=== PATIENT | female | born 1940 | race Caucasian/White ===

== ENCOUNTER → 2023-05-13 | Emergency (ER) | payer OTHER ==
[~2023-05-13] MED LIST: IBUPROFEN 200 MG TAB PO ONE
--- NOTE | 2023-05-13 16:48 | RAD REPORT ---
EXAM DESCRIPTION: RAD - Knee Left 3 View - 05/13/2023 3:47 pm CLINICAL HISTORY: Left knee pain FINDINGS: No fracture or dislocation is seen. Bones are osteoporotic. Moderate osteoarthritis involves the knee consisting of joint space narrowing and osteophytes
--- NOTE | 2023-05-13 16:59 | EDPHYS ---
Physician Documentation [facility] Name: Thor Funez Age: 82 yrs Sex: Female : 1940 Arrival Date: 05/13/2023 Time: 15:20 Bed 7 Private MD: ED Physician Ludin Lopez HPI: 05/13 16:00 This 82 yrs old Female presents to ER via EMS with complaints of Knee Injury. ci 16:00 Patient is an 82-year-old female who presents with left knee pain that began around 230 ci today after she stepped off the curb wrong. Patient reports that she stumbled a bit and held onto her car but did not hit the ground. Patient has had knee pain and unable to bear weight. Endorses swelling, pain with ambulation. Denies paresthesias, numbness, redness. Historical: - Allergies: 15:37 Sulfa (Sulfonamide Antibiotics); kc6 - PSHx: 15:37 right knee replacement; kc6 15:37 Tonsillectomy; Cholecystectomy; kc6 - Immunization history:: Adult Immunizations up to date, Flu vaccine is not up to date. - Social history:: Smoking status: Patient denies any tobacco usage or history of. - History obtained from: EMS. ROS: 16:00 Constitutional: Negative for fever, chills, and weight loss, Cardiovascular: Negative ci for chest pain, palpitations, and edema, Respiratory: Negative for shortness of breath, cough, wheezing, and pleuritic chest pain, Abdomen/GI: Negative for abdominal pain, nausea, vomiting, diarrhea, and constipation, 16:00 MS/extremity: Positive for pain, swelling, of the right leg, Exam: 16:02 Constitutional: This is a well developed, well nourished patient who is awake, alert, ci and in no acute distress. Head/Face: Normocephalic, atraumatic. Eyes: Pupils equal round and reactive to light, extra-ocular motions intact. Lids and lashes normal. Conjunctiva and sclera are non-icteric and not injected. Cornea within normal limits. Periorbital areas with no swelling, redness, or edema. ENT: Nares patent. No nasal discharge, no septal abnormalities noted. Tympanic membranes are normal and external auditory canals are clear. Oropharynx with no redness, swelling, or masses, exudates, or evidence of obstruction, uvula midline. Mucous membranes moist. Neck: Trachea midline, no thyromegaly or masses palpated, and no cervical lymphadenopathy. Supple, full range of motion without nuchal rigidity, or vertebral point tenderness. No Meningismus. Chest/axilla: Normal chest wall appearance and motion. Nontender with no deformity. No lesions are appreciated. Cardiovascular: Regular rate and rhythm with a normal S1 and S2. No gallops, murmurs, or rubs. Normal PMI, no JVD. No pulse deficits. Respiratory: Lungs have equal breath sounds bilaterally, clear to auscultation and percussion. No rales, rhonchi or wheezes noted. No increased work of breathing, no retractions or nasal flaring. Abdomen/GI: Soft, non-tender, with normal bowel sounds. No distension or tympany. No guarding or rebound. No evidence of tenderness throughout. Back: No spinal tenderness. No costovertebral tenderness. Full range of motion. Skin: Warm, dry with normal turgor. Normal color with no rashes, no lesions, and no evidence of cellulitis. Neuro: Awake and alert, GCS 15, oriented to person, place, time, and situation. Cranial nerves II-XII grossly intact. Motor strength 5/5 in all extremities. Sensory grossly intact. Cerebellar exam normal. Normal gait. Psych: Awake, alert, with orientation to person, place and time. Behavior, mood, and affect are within normal limits. 16:02 Musculoskeletal/extremity: Extremities: Compartment Syndrome exam of affected extremity: is normal. no numbness, no tingling, no sensation deficit, no palor, no weak pulses, Joints: the right knee displays effusion, limited range of motion, swelling, tenderness, Vital Signs: 15:36 BP 135 / 71; Pulse 98; Resp 16 S; Temp 97.6(O); Pulse Ox 94% on R/A; Weight 86.18 kg kc6 (R); MDM: 15:28 Patient medically screened. ci 16:41 Awaiting: X-ray results. ci 16:57 Differential Diagnosis Fracture, dislocation, sprain, tendinitis, septic arthritis, OA, ci RA. Data reviewed: vital signs, nurses notes, radiologic studies. ED course: PatientImaging shows no acute fractures. Neurovascularly intact, compartment is soft, will place in a knee immobilizer and referred to orthopedic surgery.. 05/13 15:34 Order name: XRAY Knee LEFT 3 view; Complete Time: 16:56 ci 05/13 16:57 Order name: Knee Immobilizer; Complete Time: 17:24 ci Administered Medications: 17:12 Drug: Ibuprofen PO 400 mg PO once Route: PO; me1 17:27 Follow up: Response: No adverse reaction me1 Disposition Summary: 05/13/23 16:59 Discharge Ordered Notes: Location: Home ci Condition: Stable ci Diagnosis - Sprain of other specified parts of left knee ci Followup: ci - With: Private Physician - When: 1 - 2 days - Reason: Recheck today's complaints, Re-evaluation by your physician Discharge Instructions: - Discharge Summary Sheet ci - Knee Effusion, [id number] ci - Knee Sprain, Adult, [id number]-xb-[id number] ci - Acute Knee Pain, Adult, Ulxc-hj-[id number] ci Forms: - Medication Reconciliation Form ci - Thank You Letter ci - Antibiotic Education ci - Prescription Opioid Use ci - Patient Portal Instructions ci - Leadership Thank You Letter ci Prescriptions: - Anaprox DS 550 mg Oral Tablet - take 1 tablet ORAL route every 12 hours As needed; 20 tablet; Refills: 0, ci Product Selection Permitted Signatures: Dispatcher [employer] Nyla Rod RN RN kc6 Juliette Sanchez RN RN me1 Ludin Lopez
--- NOTE | 2023-05-13 16:59 | ER ---
Nurse's Notes [facility] Name: Thor Funez Age: 82 yrs Sex: Female : 1940 Arrival Date: 05/13/2023 Time: 15:20 Bed 7 Private MD: Diagnosis: Sprain of other specified parts of left knee Presentation: 05/13 15:36 Chief complaint: EMS states: pt took a misstep off a curb while ambulating to her car. kc6 unable to bear weight for EMS. Coronavirus screen: At this time, the client does not indicate any symptoms associated with coronavirus-19. Ebola Screen: No symptoms or risks identified at this time. Initial Sepsis Screen: Does the patient meet any 2 criteria? No. Patient's initial sepsis screen is negative. Does the patient have a suspected source of infection? No. Patient's initial sepsis screen is negative. Risk Assessment: Do you want to hurt yourself or someone else? Patient reports no desire to harm self or others. Onset of symptoms was May 13, 2023. 15:36 Method Of Arrival: EMS: [facility] 15:36 Acuity: LISA 4 kc6 Triage Assessment: 15:37 General: Appears in no apparent distress. comfortable, obese, well groomed, well kc6 developed, Behavior is calm, cooperative, appropriate for age. Pain: Complains of pain in left knee. EENT: No signs and/or symptoms were reported regarding the EENT system. Neuro: Level of Consciousness is awake, alert, obeys commands, Oriented to person, place, time, situation, Appropriate for age. Cardiovascular: Capillary refill < 3 seconds. Respiratory: Airway is patent Trachea midline Respiratory effort is even, unlabored, Respiratory pattern is regular, symmetrical. GI: No signs and/or symptoms were reported involving the gastrointestinal system. : No signs and/or symptoms were reported regarding the genitourinary system. Derm: No signs and/or symptoms reported regarding the dermatologic system. Skin is intact, is healthy with good turgor, Skin is pink, warm \T\ dry. Musculoskeletal: Range of motion: limited in left knee. Historical: - Allergies: 15:37 Sulfa (Sulfonamide Antibiotics); kc6 - PSHx: 15:37 right knee replacement; kc6 15:37 Tonsillectomy; Cholecystectomy; kc6 - Immunization history:: Adult Immunizations up to date, Flu vaccine is not up to date. - Social history:: Smoking status: Patient denies any tobacco usage or history of. - History obtained from: EMS. Screenin:39 [facility] ED Fall Risk Assessment (Adult) History of falling in the last 3 months, kc6 including since admission Yes- single mechanical fall (1 pt) Confusion or Disorientation No (0 pts) Intoxicated or Sedated No (0 pts) Impaired Gait No (0 pts) Mobility Assist Device Used No (0 pt) Altered Elimination No (0 pt) Score/Fall Risk Level 0 - 2 = Low Risk. Abuse screen: Denies threats or abuse. Denies injuries from another. Nutritional screening: No deficits noted. Tuberculosis screening: No symptoms or risk factors identified. Assessment: 15:38 Reassessment: please see triage assessment. kc6 16:38 Reassessment: Patient appears in no apparent distress at this time. No changes from 6 previously documented assessment. Patient and/or family updated on plan of care and expected duration. Pain level reassessed. Patient is alert, oriented x 3, equal unlabored respirations, skin warm/dry/pink. 17:38 Reassessment: Patient appears in no apparent distress at this time. No changes from 6 previously documented assessment. Patient and/or family updated on plan of care and expected duration. Pain level reassessed. Patient is alert, oriented x 3, equal unlabored respirations, skin warm/dry/pink. Vital Signs: 15:36 BP 135 / 71; Pulse 98; Resp 16 S; Temp 97.6(O); Pulse Ox 94% on R/A; Weight 86.18 kg kc6 (R); ED Course: 15:24 Patient arrived in ED. bc6 15:27 Ludin Lopez is Attending Physician. ci 15:36 Nyla Qiu, RN is Primary Nurse. kc6 15:37 Triage completed. kc6 15:37 Arm band placed on. kc6 15:39 Patient has correct armband on for positive identification. Bed in low position. Call kc6 light in reach. Side rails up X2. Client placed on continuous cardiac and pulse oximetry monitoring. NIBP monitoring applied. 15:39 Patient maintains SpO2 saturation greater than 95% on room air. kc6 15:49 XRAY Knee LEFT 3 view In Process Unspecified. EDMS 17:42 No provider procedures requiring assistance completed. Patient did not have IV access kc6 during this emergency room visit. Administered Medications: 17:12 Drug: Ibuprofen PO 400 mg PO once Route: PO; me1 17:27 Follow up: Response: No adverse reaction me1 Medication: 17:42 VIS not applicable for this client. kc6 Outcome: 16:59 Discharge ordered by . ci 17:42 Discharged to home via wheelchair, with family, kc6 17:42 Condition: good 17:42 Discharge instructions given to patient, family, Instructed on discharge instructions, follow up and referral plans. medication usage, Demonstrated understanding of instructions, follow-up care, medications, Prescriptions given X 1, 17:42 Patient left the ED. kc6 Signatures: Dispatcher [employer] Nyla Rod, RN RN kc6 Yarely Mccarthy6 Juliette Sanchez RN RN me1 Ludin Lopez
[2023-05-13 19:32] VITALS: BP 185/90; TEMP 97.6; O2SAT 97
== END ==
LOC: ER 15:20
DX: S83.8X2A Sprain of other specified parts of left knee, initial encounter (principal); W18.43XA Slipping, tripping and stumbling without falling due to stepping from one level to another, initial encounter; Y93.89 Activity, other specified; Y92.9 Unspecified place or not applicable; Z88.2 Allergy status to sulfonamides
CPT/HCPCS: 99284

== ENCOUNTER 2024-04-29 20:36 | Inpatient (IN) | payer OTHER ==
--- OUTSIDE RECORDS SUMMARY | 2024-04-29 20:39 | XMS REPORT | Clinical Summary ---
Author Name Unknown Organization [facility] MD [facility] Address [address] [place] [address] Care Team Providers Care Shellac Polisher Name Role Phone Konrad Stevenson MD Unavailable [phone] Christopher Dee MD Unavailable Unavailable Claritza Christianson MD Primary Care Provider [phone] Mayra Garcia MD Unavailable Angel Ambrocio MD Unavailable [phone] Allergies Active Allergy Reactions Criticality Noted Date Comments Sulfa (Sulfonamide Antibiotics) Palpitations,Swelling Low Valsartan-Hydrochlor othiazide 03/24/2016 Unsure of allergy Medications * This document contains information received from the source organization and may not represent a complete record from that organization. digoxin (LANOXIN) 125 mcg tablet Take 1 tablet by mouth daily. Active furosemide (LASIX) 20 mg tablet Take 1 tablet by mouth daily. Active gabapentin (NEURONTIN) 300 mg capsule Take 1 capsule by mouth daily. Active hyoscyamine (HYOSYNE) 0.125 mg/5 mL elix elixir Take 0.125 mg by mouth every 6 (six) hours as needed. Active mirtazapine (REMERON) 15 mg tablet Take 1 tablet by mouth every evening. Active omeprazole (PriLOSEC) 20 mg capsule Take 1 capsule by mouth daily. Active rOPINIRole (REQUIP) 3 mg tablet Take 1 tablet by mouth 3 (three) times a day. Active sotalol (BETAPACE) 80 mg tablet Take 1 tablet by mouth daily. Active spironolactone (ALDACTONE) 50 mg tablet Take 1 tablet by mouth daily. Active losartan (COZAAR) 100 mg tablet Take 1 tablet by mouth daily. Active traMADol (ULTRAM) 50 mg tabletIndicatio ns:Intraductal carcinoma in situ of right breast Take 2 tablets (100 mg) by mouth every 6 (six) hours as needed for moderate pain. 30 tablet 11/23/2017 2:47 PM CDT 8 Active Additional Information Patient not taking.Reported on 12/15/2017 apixaban (ELIQUIS) 5 mg tabletIndicatio ns:Intraductal carcinoma in situ of right breast Take 1 tablet (5 mg) by mouth daily. 0 8 Active Additional Information Patient taking differently:5 mg oral2 times daily, Informant: Self, Reported on 12/01/2017 anastrozole (ARIMIDEX) 1 mg tabletIndicatio ns:Intraductal carcinoma in situ of right breast TAKE 1 TABLET BY MOUTH EVERY DAY 90 tablet 3 0 Active Active Problems Problem Noted Date Diagnosed Date Intraductal carcinoma in situ of right breast Cancer Staging:Clinical: Unsigned Pathologic stage from 12/08/2017:Stage 0(pTis (DCIS), pN0, cM0, G3, ER: Positive, CA: Positive, HER2: Not Assessed) - Signed by Patricia Mahajan MD on 12/08/2017 Surgical History Surgery Date Site/Laterality Comments KNEE ARTHROPLASTY Right CHOLECYSTECTOMY TONSILLECTOMY HYSTERECTOMY ovaries intact COLONOSCOPY CA MASTECTOMY PARTIAL 11/23/2017 Breast/Right Procedure: NEEDLE LOC; SEGMENTAL MASTECTOMY; Surgeon: Claritza Christianson MD; Location: [facility]; Service: BREAST Medical History Medical History Date Comments Atrial fibrillation Hypertension Restless legs Acid reflux Lymphedema Bilateral legs Family History Medical History Relation Name Comments -Breast cancer Neg Hx Ovarian cancer Neg Hx Social History Tobacco Use Types Packs/Day Years Used Date Smoking Tobacco: Never Smokeless Tobacco: Never Alcohol Use Standard Drinks/Week Comments Yes 0 (1 standard drink = 0.6 oz pur e alcohol) rarely Comments No Sex and Gender Information Value Date Recorded Sex Assigned at Not on file Legal Sex Female 11:53 AM CDT Gender Identity Not on file Sexual Orientation Not on file Obstetrics History Para Term AB IAB SAB Ectopic Multiple Livin g Live Births 3 1 Date Outcome GA Total Labor Labor/2nd/3rd Weight Sex Type Anes PTL Kiana A1 A5 Name Clin Para Plan of Treatment Health Maintenance Due Date Last Done Comments Pneumococcal Vaccine: 65+ Years (1 of 1 - PCV) 008 COVID-19 Vaccine ( - 2023- season) 2023 Influenza Vaccine (#1) 2023 Insurance MEDICARE PART A AND B [employer] HMO MEDICARE PART A AND B [facility] H[facility] [address] [place] [address] [facility] Directives * Full Code (Latest Code Status on File) Date Activated Date Inactivated Comments 11/23/2017 1:59 PM 11/23/2017 6:04 PM Care Teams Shellac Polisher Relationship Specialty Start Date End Date Konrad Stevenson MD [address] [place] [id number] [email or web address] PCP - External Follow Up A Internal Medicine 11/04/17 Christopher Dee MD [id number] [address] PCP - External Follow Up B Cardiology 11/04/17 Claritza Christianson MD [address] [place] [email or web address] PCP - General Breast Surgery 11/10/17 Mayra Garcia MD [address] [place] [email or web address] Physician Medical Oncology 11/30/17 Angel Ambrocio MD [address] [place] [email or web address] Consulting Physician Cardiology 11/15/17
[2024-04-29] MEDS ORDERED: HYDROCODONE/APAP 5/325 MG TAB ONE (21:45)
--- NOTE | 2024-04-29 21:55 | RAD REPORT ---
EXAMINATION: ONE VIEW CHEST XR CLINICAL INDICATION: edema TECHNIQUE: Frontal chest projection is submitted. Examination is limited by patient positioning and t echnique. COMPARISON: 05/03/2023 FINDINGS: Sbvf-[id number] pulmonary edema. The heart is moderately enlarged in size. No displaced fractures id entified. Left shoulder degenerative changes. IMPRESSION: [id number] CHF versus volume overload pattern.
--- NOTE | 2024-04-29 22:14 | RAD REPORT ---
EXAMINATION: US BILATERAL LOWER EXTREMITY VENOUS DOPPLER CLINICAL INDICATION: bilateral leg swelling TECHNIQUE: Complete bilateral duplex sonography of the BILATERAL lower extremity veins was performed. The examination included compression for vein patency, color Doppler imaging and flow augmentation in response to distal compression of the distal external iliac, common femoral, femoral, popliteal, t ibial, and great and small saphenous veins. COMPARISON: No prior exam. FINDINGS: Duplex sonography testing of the veins of the BILATERAL lower extremity was performed. Color flow jen ging shows all veins to be compressible with vand-gz-uals color filling. Pulsatile and phasic flow is present within all lower extremity deep and superficial veins examined. IMPRESSION: There is no deep vein or superficial vein thrombosis.
[2024-04-29 23:58] LABS: Absolute Eosinophils 0.1 K/uL (0-0.5); Absolute Lymphocytes (CBC) 1.7 K/uL (0.7-4.9); Absolute Monocytes 0.4 K/uL (0.1-1.3); Absolute Neutrophil 3.3 K/uL (1.8-8.0); Basophils % 0.3 % (0-1.3); Eosinophils % 1.6 % (0-4.4); Hematocrit 38.5 % (36.0-45.0); Hemoglobin 12.9 g/dL (12.0-15.0); Lymphocytes % 31.4 % (15.3-44.8); MCH 31.3 pg (27.0-35.0); MCHC 33.4 g/dL (32.0-36.0); MCV 93.6 fL (80-100); Monocytes % 7.8 % (3.3-12.3); Neutrophils % 58.9 % (41.7-73.7); Nucleated Red Blood Cells % 0.1 % (0-0); Platelets 204 thou/uL (152-406); RBC Red Blood Cell Count 4.11 M/uL (3.86-4.86); Red Cell Distribution Width 14.3 % (12.1-15.2)
[2024-04-30 00:07] LABS: Protime INR 1.26
[2024-04-30 00:21] LABS: Albumin 3.3 g/dL (3.4-5.0); Albumin/Globulin Ratio 0.9 (1.1-1.8); Anion Gap 7.7 mEq/L (5.0-15.0); Bilirubin Direct 0.3 mg/dL (0-0.2); Bilirubin Indirect, Calculated 0.6 mg/dL (0.2-0.8); Bilirubin Total 0.9 mg/dL (0.2-1.0); Globulin 3.8 g/dL (2.3-3.5); Magnesium 1.9 mg/dL (1.6-2.4); Potassium 3.7 mEq/L (3.5-5.1); Protein, Total 7.1 g/dL (6.4-8.2); Troponin High Sensitivity 7.9 pg/mL (<58.9)
--- NOTE | 2024-04-30 01:06 | EDPHYS ---
Physician Documentation [facility] Name: Thor Funez Age: 83 yrs Sex: Female : 1940 Arrival Date: 04/29/2024 Time: 20:36 Bed 16 Private MD: Konrad Stevenson V ED Physician Jason Wolf HPI: 04/29 20:48 This 83 yrs old Female presents to ER via Unassigned with complaints of Leg sp4 Swelling, Dr SERRANO sent the patient to the ER, Pt can not walk due to legs swelling and hurting. 04/30 18:55 This is a very pleasant 83-year-old female who presents with bilateral lower extremity sp4 swelling and pain. Patient was sent here by her vascular specialist to rule out bilateral lower extremity blood clots. Patient was advised to get bilateral lower extremity venous Doppler. Reports dyspnea on exertion and generalized weakness.. Historical: - Allergies: 04/29 21:39 Sulfa (Sulfonamide Antibiotics); kj2 - PSHx: 21:39 Cholecystectomy; Right knee replacement; Tonsillectomy; kj2 - Immunization history:: Adult Immunizations unknown. - Infectious Disease History:: Denies. - Social history:: Smoking status: unknown. - Family history:: not pertinent. ROS: 04/30 18:56 Constitutional: Negative for fever, chills, and weight loss, positive for bilateral sp4 lower extremity swelling, positive for dyspnea on exertion, positive for pitting edema, positive for generalized fatigue All other systems are negative, Exam: 01:06 Constitutional: This is a well developed, well nourished patient who is awake, alert, sp4 Frail elderly female , No distress Head/Face: Normocephalic, atraumatic. Eyes: Pupils equal round and reactive to light, extra-ocular motions intact. Lids and lashes normal. Conjunctiva and sclera are not injected. Cornea within normal limits. Periorbital areas with no swelling, redness, or edema. ENT: Nares patent. No nasal discharge, no septal abnormalities noted. Tympanic membranes are normal and external auditory canals are clear. Oropharynx with no redness, swelling, or masses, exudates, or evidence of obstruction, uvula midline. Mucous membranes moist. Neck: Trachea midline, no thyromegaly or masses palpated, and no cervical lymphadenopathy. Supple, full range of motion without nuchal rigidity, or vertebral point tenderness. Chest/axilla: Normal chest wall appearance and motion. Nontender with no deformity. No lesions are appreciated. Cardiovascular: Irregularly irregular rate. No gallops, murmurs, or rubs. Normal PMI, no JVD. No pulse deficits. Respiratory: Lungs have equal breath sounds bilaterally, clear to auscultation and percussion. No rales, rhonchi or wheezes noted. No increased work of breathing, no retractions or nasal flaring. Abdomen/GI: Soft, with normal bowel sounds. No distension or tympany. No guarding or rebound. No evidence of tenderness throughout. Back: No spinal tenderness. No costovertebral tenderness. Skin: Warm, dry with normal turgor. Normal color with no rashes, no lesions, and no evidence of cellulitis. MS/ Extremity: Pulses equal, no cyanosis. Neurovascular intact. Full, normal range of motion. Neuro: Awake and alert, GCS 15, oriented to person, place, time, and situation. Cranial nerves II-XII grossly intact. Motor strength 5/5 in all extremities. Sensory grossly intact. Psych: Awake, alert, with orientation to person, place and time. Behavior, mood, and affect are within normal limits 01:06 ECG was reviewed by the Attending Physician. 2233 EKG 2233 atrial fibrillation rate 105 Vital Signs: 04/29 21:25 BP 158 / 89; Pulse 105; Resp 18; Temp 97.9; Pulse Ox 100% ; Weight 83.91 kg; Height 5 kj2 ft. 2 in. ; Pain 8/10; 22:30 BP 142 / 74; Pulse 58; Resp 18; Pulse Ox 100% on R/A; kj2 23:51 BP 134 / 73; Pulse 91; Resp 18; Pulse Ox 100% ; kj2 04/30 02:00 BP 123 / 67; Pulse 68; Resp 18; Pulse Ox 98% on R/A; kj2 04/29 21:25 Body Mass Index 33.84 (83.91 kg, 157.48 cm) kj2 04/29 21:25 Pain Scale: Adult kj2 [place] Coma Score: 01:06 Eye Response: spontaneous(4). Motor Response: obeys commands(6). Verbal Response: sp4 oriented(5). Total: 15. MDM: 04/29 20:56 Medical Screening Exam initiated sp4 04/30 00:49 ED course: CLINICAL INDICATION: bilateral leg swelling TECHNIQUE: Complete bilateral sp4 duplex sonography of the BILATERAL lower extremity veins was performed. The examination included compression for vein patency, color Doppler imaging and flow augmentation in response to distal compression of the distal external iliac, common femoral, femoral, popliteal, tibial, and great and small saphenous veins. COMPARISON: No prior exam. FINDINGS: Duplex sonography testing of the veins of the BILATERAL lower extremity was performed. Color flow imaging shows all veins to be compressible with [id number] color filling. Pulsatile and phasic flow is present within all lower extremity deep and superficial veins examined. IMPRESSION: There is no deep vein or superficial vein thrombosis.. ED course: CLINICAL INDICATION: edema TECHNIQUE: Frontal chest projection is submitted. Examination is limited by patient positioning and technique. COMPARISON: 05/03/2023 FINDINGS: [id number] pulmonary edema. The heart is moderately enlarged in size. No displaced fractures identified. Left shoulder degenerative changes. IMPRESSION: [id number] CHF versus volume overload pattern.. 18:56 Differential diagnosis: contusion, abrasion, tendonitis. Data reviewed: vital signs, sp4 nurses notes, radiologic studies, doppler, plain films. Consideration of Admission/Observation Escalation of care including admission/observation considered. ED course: On the EKG review patient seems to have rate controlled atrial fibrillation , she is at this time warrants admission to the hospital for evaluation of CHF and new onset atrial fibrillation. 04/29 20:56 Order name: Basic Metabolic Panel; Complete Time: 00:45 [facility] 04/29 20:56 Order name: CBC with Diff; Complete Time: 00:45 [facility] 04/29 20:56 Order name: LFT's; Complete Time: 00:45 [facility] 04/29 20:56 Order name: Magnesium; Complete Time: 00:45 [facility] 04/29 20:56 Order name: NT PRO-BNP; Complete Time: 00:45 [facility] 04/29 20:56 Order name: PT-INR; Complete Time: 00:21 [facility] 04/29 20:56 Order name: Troponin HS; Complete Time: 00:45 [facility] 04/29 20:56 Order name: XRAY Chest (1 view); Complete Time: 00:21 [facility] 04/29 21:22 Order name: Extrem Venous W Compression Ld US; Complete Time: 00:21 sp4 04/29 20:56 Order name: Cardiac monitoring; Complete Time: 22:36 sp4 04/29 20:56 Order name: EKG - Nurse/Tech; Complete Time: 22:36 sp4 04/29 20:56 Order name: IV Saline Lock; Complete Time: 23:52 sp4 04/29 20:56 Order name: Labs collected and sent; Complete Time: 23:52 sp4 04/29 20:56 Order name: O2 Per Protocol; Complete Time: 22:36 sp4 04/29 20:56 Order name: O2 Sat Monitoring; Complete Time: 22:36 sp4 EC/04 22:33 Rate is 105 beats/min. Rhythm is irregularly irregular, A fib. QRS [place] is Normal. QRS sp4 interval is normal. QT interval is normal. No Q waves. T waves are Normal. No ST changes noted. Clinical impression: No evidence of ischemia. Interpreted by me. Reviewed by me. Administered Medications: 22:08 Drug: HYDROcodone-acetaminophen PO 5 mg-325 mg 2 tabs PO once Route: PO; kj2 23:52 Follow up: Response: No adverse reaction; Pain is decreased kj2 04/30 02:10 Drug: Furosemide IVP 40 mg IVP once; give over 2 minutes Route: IVP; Site: right kj2 antecubital; 02:40 Follow up: Response: No adverse reaction kj2 02:10 Drug: Enoxaparin Sub-Q 1 mg/kg Sub-Q once Route: Sub-Q; Site: abdomen; kj2 02:39 Follow up: Response: No adverse reaction kj2 Disposition Summary: 04/30/24 01:05 Hospitalization Ordered Notes: Hospitalization Status: Inpatient Admission sp4 Provider: Konrad Stevenson sp4 Location: Telemetry/[facility] (Inpatient) sp4 Condition: Stable sp4 Problem: new sp4 Symptoms: have improved sp4 Bed/Room Type: Standard sp4 Room Assignment: 211(04/30/24 01:25) hw Diagnosis - Acute diastolic (congestive) heart failure sp4 - Generalized edema sp4 - Atrial fibrillation acute onset sp4 Forms: - Medication Reconciliation Form sp4 - SBAR form sp4 - Leadership Thank You Letter sp4 Signatures: Dispatcher [employer] Jason Land MD MD sp4 Roseanna Woods RN RN kj2 Bettie Blakely Corrections: (The following items were deleted from the chart) 01:25 01:05 sp4
--- NOTE | 2024-04-30 01:06 | ER ---
Nurse's Notes [facility] Name: Thor Funez Age: 83 yrs Sex: Female : 1940 Arrival Date: 04/29/2024 Time: 20:36 Bed 16 Private MD: Konrad Stevenson V Diagnosis: Acute diastolic (congestive) heart failure;Generalized edema;Atrial fibrillation acute onset Presentation: 04/29 21:25 Chief complaint: Patient states: legs swollen, legs burn and feel heavy. Coronavirus kj2 screen: Client denies travel out of the [place] in the last 14 days. Ebola Screen: No symptoms or risks identified at this time. Initial Sepsis Screen: Does the patient meet any 2 criteria? No. Patient's initial sepsis screen is negative. Does the patient have a suspected source of infection? No. Patient's initial sepsis screen is negative. Risk Assessment: Do you want to hurt yourself or someone else? Patient reports no desire to harm self or others. Onset of symptoms was April 29, 2024. 21:25 Method Of Arrival: Ambulatory kj2 21:25 Acuity: LISA 3 kj2 Triage Assessment: 21:25 General: Appears in no apparent distress. uncomfortable, Behavior is calm, cooperative. kj2 Pain: Complains of pain in bilat legs Pain currently is 8 out of 10 on a pain scale. Neuro: Level of Consciousness is awake, alert, obeys commands, Oriented to person, place, time, situation. Cardiovascular: Patient's skin is warm and dry. Respiratory: Airway is patent Respiratory effort is unlabored. GI: No signs and/or symptoms were reported involving the gastrointestinal system. : No signs and/or symptoms were reported regarding the genitourinary system. Historical: - Allergies: 21:39 Sulfa (Sulfonamide Antibiotics); kj2 - PSHx: 21:39 Cholecystectomy; Right knee replacement; Tonsillectomy; kj2 - Immunization history:: Adult Immunizations unknown. - Infectious Disease History:: Denies. - Social history:: Smoking status: unknown. - Family history:: not pertinent. Screenin:49 [facility] ED Fall Risk Assessment (Adult) History of falling in the last 3 months, kj2 including since admission No falls in past 3 months (0 pts) Confusion or Disorientation No (0 pts) Intoxicated or Sedated No (0 pts) Impaired Gait No (0 pts) Mobility Assist Device Used No (0 pt) Altered Elimination No (0 pt) Score/Fall Risk Level 0 - 2 = Low Risk Maintained a safe environment, Hourly rounding (assess needs \T\ fall precautionary measures) done. Abuse screen: Denies threats or abuse. Denies injuries from another. Nutritional screening: No deficits noted. Tuberculosis screening: No symptoms or risk factors identified. Assessment: 21:25 General: see triage assessment. kj2 22:20 Reassessment: Patient appears in no apparent distress at this time. Patient and/or kj2 family updated on plan of care and expected duration. Pain level reassessed. Patient is alert, oriented x 3, equal unlabored respirations, skin warm/dry/pink. 23:00 Reassessment: Patient appears in no apparent distress at this time. Patient and/or kj2 family updated on plan of care and expected duration. Pain level reassessed. Patient is alert, oriented x 3, equal unlabored respirations, skin warm/dry/pink. 04/30 00:00 Reassessment: Patient appears in no apparent distress at this time. Patient and/or kj2 family updated on plan of care and expected duration. Pain level reassessed. Patient is alert, oriented x 3, equal unlabored respirations, skin warm/dry/pink. 01:00 Reassessment: Patient appears in no apparent distress at this time. Patient and/or kj2 family updated on plan of care and expected duration. Pain level reassessed. Patient is alert, oriented x 3, equal unlabored respirations, skin warm/dry/pink. 02:40 Reassessment: Patient appears in no apparent distress at this time. Patient and/or kj2 family updated on plan of care and expected duration. Pain level reassessed. Patient is alert, oriented x 3, equal unlabored respirations, skin warm/dry/pink. Vital Signs: 04/29 21:25 BP 158 / 89; Pulse 105; Resp 18; Temp 97.9; Pulse Ox 100% ; Weight 83.91 kg; Height 5 kj2 ft. 2 in. ; Pain 8/10; 22:30 BP 142 / 74; Pulse 58; Resp 18; Pulse Ox 100% on R/A; kj2 23:51 BP 134 / 73; Pulse 91; Resp 18; Pulse Ox 100% ; kj2 04/30 02:00 BP 123 / 67; Pulse 68; Resp 18; Pulse Ox 98% on R/A; kj2 04/29 21:25 Body Mass Index 33.84 (83.91 kg, 157.48 cm) kj2 04/29 21:25 Pain Scale: Adult kj2 [place] Coma Score: 01:06 Eye Response: spontaneous(4). Motor Response: obeys commands(6). Verbal Response: sp4 oriented(5). Total: 15. ED Course: 04/29 20:40 Patient arrived in ED. gm2 20:41 Konrad Stevenson MD is Private Physician. gm2 20:47 Jason Wolf MD is Attending Physician. sp4 21:36 Roseanna Woods RN is Primary Nurse. kj2 21:39 Triage completed. kj2 21:51 XRAY Chest (1 view) In Process Unspecified. EDMS 21:51 Patient has correct armband on for positive identification. Placed in gown. Bed in low kj2 position. Side rails up X 1. Adult w/ patient. Provided Education on: call light. 22:09 Extrem Venous W Compression Ld US In Process Unspecified. EDMS 23:52 Inserted saline lock: 20 gauge in right antecubital area, using aseptic technique. kj2 Blood collected. Flushed with 10 mL NS. 04/30 01:04 Konrad Stevenson MD is Hospitalizing Provider. sp4 02:41 Arm band placed on Patient placed. kj2 02:41 No provider procedures requiring assistance completed. Patient admitted, IV remains in kj2 place. Administered Medications: 04/29 22:08 Drug: HYDROcodone-acetaminophen PO 5 mg-325 mg 2 tabs PO once Route: PO; kj2 23:52 Follow up: Response: No adverse reaction; Pain is decreased kj2 04/30 02:10 Drug: Furosemide IVP 40 mg IVP once; give over 2 minutes Route: IVP; Site: right kj2 antecubital; 02:40 Follow up: Response: No adverse reaction kj2 02:10 Drug: Enoxaparin Sub-Q 1 mg/kg Sub-Q once Route: Sub-Q; Site: abdomen; kj2 02:39 Follow up: Response: No adverse reaction kj2 Medication: 01/04 21:51 VIS not applicable for this client. kj2 Outcome: 04/30 01:05 Decision to Hospitalize by Provider. sp4 02:41 [address] to [facility] 02:41 Condition: stable 02:41 Instructed on the need for admit, 02:41 Patient left the ED. kj2 Signatures: Dispatcher [employer] EDJason Kay MD MD sp4 Abiola Brower 2 Roseanna Woods RN RN kj2
[2024-04-30] MEDS ORDERED: FUROSEMIDE 40 MG/4 ML VIAL ONE (01:52)
[2024-04-30] MEDS ORDERED: ENOXAPARIN 100 MG/ML SYR SQ ONE (01:52)
[2024-04-30] MEDS ORDERED: ONDANSETRON 4 MG/2 ML VIAL IV PRN (01:56)
[2024-04-30] MEDS ORDERED: HYDROCODONE/APAP 5/325 MG TAB PO PRN (01:56)
[2024-04-30] MEDS ORDERED: ACETAMINOPHEN 325 MG TABLET PO PRN (01:56)
[2024-04-30] MEDS ORDERED: ZOLPIDEM TARTRATE 5 MG TABLET PO PRN (01:56)
[2024-04-30] MEDS ORDERED: ALBUTEROL 2.5 MG/3 ML NEB SOL NEB PRN (01:56)
[2024-04-30 03:34] VITALS: BMI 33.8
--- NOTE | 2024-04-30 06:56 | P.HP ---
Certification for Inpatient Patient admitted to: Inpatient With expected LOS: >2 Midnights Practitioner: I am a practitioner with admitting privileges, knowledge of patient current condition, hospital course, and medical plan of care. Services: Services provided to patient in accordance with Admission requirements found in Title 42 Section 412.3 of the Code of Federal Regulations Patient History Date of Service: 04/30/24 Reason for admission: edema, shortness of breath History of Present Illness: 83 yo F, PMH: Lymphedema, A-fib, Hypertension, Obstructive sleep apnea, Depres sandra, Hyperlipidemia, Irritable Bowel Syndrome Patient presented to the ED with worsening lower extremity edema, pain, weakness. She reports difficulty ambulating over the last few days secondary to lower extremity pain, swelling. Swelling significant worse in last few days, but states shortness of breath, feeling more "run down", and swelling has been more for last 2-3 months. EKG in ED noted a-fib, HR 105. Patient noted to have a history of a-fib. She states she typically feels her heart racing when shes in a-fib. She feels these episodes have been occurring more often recently compared to several months ago reports shes felt more tired and weak these last few months. She has been taking all her meds as prescribed. No change in meds in last several months. Chest xray with mild-moderate CHF vs volume overload. Lower extremity venous ultrasound negative for DVT bilaterally. Allergies Sulfa (Sulfonamide Antibiotics) Allergy (Verified 08/22/14 20:08) Anaphylaxis Home Medications: Gabapentin [Neurontin*] 300 mg PO BEDTIME 08/22/14 Ropinirole HCl [Requip] 3 mg PO TID 08/22/14 Apixaban [Eliquis *] 5 mg PO BID #60 tablet 08/24/14 Sotalol HCl [Betapace*] 80 mg PO 0600,1800 #60 tab 08/24/14 Mirtazapine [Remeron] 15 mg PO BEDTIME 05/03/15 Acetaminophen [Pain Relief] 500 mg PO PRN PRN 04/30/24 Digoxin [Lanoxin] 250 mcg PO DAILY 04/30/24 Glucosamine/Chondroiti/Guwa707 [Cosamin Asu Capsule] 2 tab PO DAILY 04/30/24 Spironolactone [Aldactone*] 25 mg PO DAILY 04/30/24 - Past Medical/Surgical History Has patient received pneumonia vaccine in the past: Yes Diabetic: No -: HTN -: Restless leg syndrome -: AFib -: hyperlipidemia -: Depression -: IBS -: IBS -: hemorrhage behind left eye -: Tonsilectomy -: umbilical hernia repair -: cholecystectomy -: vaginal hysterectomy -: lymphedema - Family History Father -: Heart disease, Hypertension Notes: Mother -: Heart disease, Hypertension, Diabetes Notes: Brother -: Hypertension, Cancer Notes: prostate ca Sister -: Diabetes, Cancer Notes: skin ca - Social History Smoking Status: Never smoker Alcohol use: No CD- Drugs: No Caffeine use: Yes Place of Residence: Home Physical Examination - Vital Signs Temperature: 97.7 F Blood Pressure: 131/73 Pulse: 94 Respirations: 18 Pulse Ox (%): 98 - Studies Laboratory Data (last 24 hrs) 04/29/24 04/29/24 04/29/24 23:35 23:35 23:35 WBC 5.60 Hgb 12.9 Hct 38.5 Plt Count 204 PT 14.0 H INR 1.26 Sodium 136 Potassium 3.7 BUN 12 Creatinine 0.88 Glucose 169 H Magnesium 1.9 Total Bilirubin 0.9 AST 25 ALT 29 Alkaline Phosphatase 86 Assessment and Plan - Plan Physical Exam: GEN: Alert, NAD CV: Irregularly Irregular rate and rhythm, 2-3+ Bilateral Lower extremity edema Pulm: Nonlabored respirations on room air at rest, diminished at bases bilaterally ABD: soft, nontender, nondistended Neuro: Normal speech, normal affect Problem List: Bilateral lower extremity edema Chronic lymphedema Paroxymsal A-fib; on anticoagulation Hypertension Hyperlipidemia Depression Obstructive Sleep Apnea Hx Irritable bowel syndrome Hx Restless leg syndrome Bilateral lower extremity edema Chronic lymphedema on admission, presents with worsening lower extremity edema, pain. +Difficulty ambulating d/t swelling/pain. Reports shes been more tired, run down over the last ~6 months. CXR (04/29): mild-mod CHF vs volume overload Venous u/s (04/29): Negative for DVT bilaterally. given 40 mg IV lasix in ED; IV lasix 40 mg x1 ordered 04/30 BNP 830 Trend troponin's - negative/flat possibly from afib, possible new CHF vs progression of lymphedema monitor on telemetry Keep legs elevated. Resume home spironolactone lower extremity edema improving - feels about 10% smaller today compared to last night will defer echo to cardio / re-eval tomorrow Paroxymsal A-fib; on anticoagulation EKG in ED noted a-fib. Has hx of a-fib. State she typically feels her heart racing when shes in a-fib. States she been feeling these episodes more often recently compared to several months ago. Reports shes been more tired, run down over the last ~6 months. resume home sotalol, digoxin Given lovenox in ED; resume eliquis tonight Monitor on telemetry Currently in an out of a-fib. HR 90-100s Cardiology consulted uncontrolled afib / intermittent, may be contributing /cause of her increased swelling Hypertension Hyperlipidemia Depression Obstructive Sleep Apnea Hx Irritable bowel syndrome Hx Restless leg syndrome confirm home meds, restart as appropriate resume home requip, remeron, gabapentin VTE: given lovenox in ED; restart eliquis tonight Code: Full Dispo: Home, ~2 days Pending diuresis, a-fib better controlled - Advance Directives Does patient have a Living Will: Yes Does patient have a Durable POA for Healthcare: Yes Time Spent Managing Pts Care (In Minutes): 70
[2024-04-30] MEDS: SOTALOL HCL 80 MG TAB PO SCH (08:07)
[2024-04-30] MEDS: DIGOXIN 0.25 MG TABLET PO SCH (08:07)
[2024-04-30] MEDS: SPIRONOLACTONE 25 MG TABLET PO SCH (10:21)
[2024-04-30] MEDS: ROPINIROLE HCL 1 MG TAB PO SCH (10:21)
[2024-04-30] MEDS: FUROSEMIDE 40 MG/4 ML VIAL IV ONE (10:21)
[2024-04-30] MEDS ORDERED: HOME MED 1 EA UNK (Ropinirole Hcl [Requip] 3 MG Tablet) PO SCH (14:00)
--- NOTE | 2024-04-30 14:56 | P.CNS ---
Date of Consult: 04/30/24 Chief Complaint: edema, shortness of breath History of Present Illness: Patient with PMH of atrial fibrillation, lymphedema, presented with worsening SOB, fatigue, and lower extremities swelling, denies chest pain, no palpitations, no syncope. Allergies Sulfa (Sulfonamide Antibiotics) Allergy (Verified 08/22/14 20:08) Anaphylaxis Home medications list reviewed: Yes Home Medications: Gabapentin [Neurontin*] 300 mg PO BEDTIME 08/22/14 Ropinirole HCl [Requip] 3 mg PO TID 08/22/14 Apixaban [Eliquis *] 5 mg PO BID #60 tablet 08/24/14 Sotalol HCl [Betapace*] 80 mg PO 0600,1800 #60 tab 08/24/14 Mirtazapine [Remeron] 15 mg PO BEDTIME 05/03/15 Acetaminophen [Pain Relief] 500 mg PO PRN PRN 04/30/24 Digoxin [Lanoxin] 250 mcg PO DAILY 04/30/24 Glucosamine/Chondroiti/[id number] [Cosamin Asu Capsule] 2 tab PO DAILY 04/30/24 Spironolactone [Aldactone*] 25 mg PO DAILY 04/30/24 - Past Medical/Surgical History Diabetic: No -: HTN -: Restless leg syndrome -: AFib -: hyperlipidemia -: Depression -: IBS -: IBS -: hemorrhage behind left eye -: Tonsilectomy -: umbilical hernia repair -: cholecystectomy -: vaginal hysterectomy -: lymphedema - Family History Father Medical History: Heart disease, Hypertension Notes: Mother Medical History: Heart disease, Hypertension, Diabetes Notes: Brother Medical History: Hypertension, Cancer Notes: prostate ca Sister Medical History: Diabetes, Cancer Notes: skin ca - Social History Smoking Status: Unknown if ever smoked Alcohol use: No CD- Drugs: No Caffeine use: Yes Place of Residence: Home Review of Systems 10-point ROS is otherwise unremarkable Physical Examination Temp Pulse Resp BP Pulse Ox 97.7 F 94 H 18 131/73 98 04/30/24 12:04 04/30/24 12:04 04/30/24 12:04 04/30/24 12:04 04/30/24 12:04 General: Alert, In no apparent distress HEENT: Atraumatic, PERRLA, Mucous membr. moist/pink, EOMI, Sclerae nonicteric Neck: Supple, 2+ carotid pulse no bruit, No LAD, Without JVD or thyroid abnormality Respiratory: Clear to auscultation bilaterally, Normal air movement Cardiovascular: Edema, Irregular heart rate/rhythm Gastrointestinal: Normal bowel sounds, No tenderness Musculoskeletal: No tenderness Integumentary: No rashes Neurological: Normal gait, Normal speech, Normal tone, Normal affect Lymphatics: No axilla or inguinal lymphadenopathy Laboratory Data (last 24 hrs) 04/29/24 04/29/24 04/29/24 23:35 23:35 23:35 WBC 5.60 Hgb 12.9 Hct 38.5 Plt Count 204 PT 14.0 H INR 1.26 Sodium 136 Potassium 3.7 BUN 12 Creatinine 0.88 Glucose 169 H Magnesium 1.9 Total Bilirubin 0.9 AST 25 ALT 29 Alkaline Phosphatase 86 - Problems (1) SOB (shortness of breath) Current Visit: Yes Status: Acute Plan: unclear what patient EF is, most likely diastolic dysfunction. would recommend to continue Lasix 40 mg IV BID Monitor input and output and electrolytes continue Aldactone 25 mg daily get Echo in am (2) Atrial fibrillation Onset Date: 08/23/14 Current Visit: No Status: Chronic Plan: Patient has been in AF for long perior of time, she is on sotalol and digoxin, need to get echo to check on LA size to decide about best way of treating it. continue sotalol, digoxin get digoxin level. get echo continue Eliquis (3) Lymphedema of lower extremity Current Visit: No Status: Chronic Plan: advised patient that she will need to see lymphedema clinic, she is seeing IR as outpatient, plan for venous study.
[2024-04-30] MEDS: GABAPENTIN 300 MG CAP PO SCH (20:58)
[2024-04-30] MEDS: APIXABAN 5 MG TABLET PO SCH (20:58)
[2024-04-30] MEDS: MIRTAZAPINE 15 MG TAB PO SCH (20:58)
[2024-05-01 05:50] LABS: Anion Gap 9.2 mEq/L (5.0-15.0); Magnesium 1.7 mg/dL (1.6-2.4); Potassium 3.2 mEq/L (3.5-5.1)
[2024-05-01] MEDS: FUROSEMIDE 40 MG/4 ML VIAL IV SCH (10:39)
[2024-05-01 12:03] LABS: Specific Gravity 1.007 (1.005-1.030); Sqamous Epithelial <5 /HPF (None Seen); Urine Bacteria <20 /HPF (<20); Urine Bilirubin NEGATIVE (Negative); Urine Blood Negative (Negative); Urine Clarity Clear (Clear); Urine Color Colorless (Yellow); Urine Culture Reflex Order NOT NEEDED; Urine Glucose NEGATIVE (Negative); Urine Ketones NEGATIVE (Negative); Urine Microscopic Reflex YN ORDER UMIC; Urine Nitrite NEGATIVE (Negative); Urine Protein NEGATIVE (Negative); Urine RBC <5 /HPF (None Seen); Urine Urobilinogen Normal (Normal); Urine WBC <5 /HPF (<5); Urine pH 6.5 (5.0-7.0)
--- NOTE | 2024-05-01 12:48 | P.PN ---
Subjective Date of Service: 05/01/24 Chief Complaint: edema, shortness of breath Subjective: No new changes, No C/O voiced, Tolerating diet, Ambulating, Improving Review of Systems 10-point ROS is otherwise unremarkable Physical Examination - Vital Signs Temperature: 97.2 F Blood Pressure: 166/73 Pulse: 110 Respirations: 16 Pulse Ox (%): 95 - Physical Exam General: Alert, In no apparent distress HEENT: Atraumatic, PERRLA, EOMI Neck: Supple, JVD not distended Respiratory: Clear to auscultation bilaterally, Normal air movement Cardiovascular: Irregular heart rate/rhythm Gastrointestinal: Normal bowel sounds, No tenderness Musculoskeletal: No tenderness Integumentary: No rashes Neurological: Normal speech, Normal tone, Normal affect Lymphatics: No axilla or inguinal lymphadenopathy - Studies Medications List Reviewed: Yes Assessment And Plan - Current Problems (Diagnosis) (1) Atrial fibrillation Onset Date: 08/23/14 Current Visit: No Status: Chronic Plan: Patient has been in AF for long perior of time, she is on sotalol and digoxin, Echo shows moderate to severe dilated LA MPO after midnight for attempt of ANIKA DCCV continue sotalol, digoxin get digoxin level. continue Eliquis (2) Lymphedema of lower extremity Current Visit: No Status: Chronic Plan: advised patient that she will need to see lymphedema clinic, she is seeing IR as outpatient, plan for venous study. (3) Acute on chronic diastolic heart failure Current Visit: Yes Status: Acute Plan: continue Lasix 40 mg IV BID Monitor input and output and electrolytes continue Aldactone 25 mg daily
--- NOTE | 2024-05-01 13:07 | P.PN ---
Subjective Date of Service: 05/01/24 Chief Complaint: edema, shortness of breath Subjective: Improving ALIX HAS HAD A FIB FOR LONG DURATION. SHE HAS BEEN GOING TO DR. FONTAINE FOR A WHILE. SHE COMES WITH DYSPNEA. SHE HAS MOD CHF. SHE HAS CHRONIC LYMPHEDEMA. SHE IMPROVED ON IV DIURESIS. DR. PALACIO WANTS TO DO CARDIOVERSION IN AM. SHE IS ALREADY ANTICOAGUALTED. Review of Systems 10-point ROS is otherwise unremarkable General: Weakness Physical Examination - Vital Signs Temperature: 97.2 F Blood Pressure: 166/73 Pulse: 110 Respirations: 16 Pulse Ox (%): 95 - Physical Exam General: Mild distress, Obese HEENT: Atraumatic, PERRLA, EOMI Neck: Supple, JVD not distended Respiratory: Clear to auscultation bilaterally, Normal air movement Cardiovascular: Edema (LYMPHEDEMA), Irregular heart rate/rhythm Gastrointestinal: Normal bowel sounds, No tenderness Musculoskeletal: No tenderness Integumentary: No rashes Neurological: Normal speech, Normal tone, Normal affect Lymphatics: No axilla or inguinal lymphadenopathy - Studies Medications List Reviewed: Yes Assessment And Plan - Current Problems (Diagnosis) (1) Acute on chronic diastolic heart failure Current Visit: Yes Status: Acute Plan: IV LASIX RAISE SPIRONOLACTONE. FU LAB DAILY. ECHO SHOWS ENALRGED RA AND IVC. (2) Atrial fibrillation Onset Date: 08/23/14 Current Visit: No Status: Chronic Plan: CARDIOVERSION IN AM.
--- NOTE | 2024-05-01 14:26 | ECHO ---
HEIGHT: 5 ft 2 in WEIGHT: 185 lb 0 oz DATE OF STUDY: 05/01/[address]: Anthony Alamo MD 2-DIMENSIONAL: YES M.MODE: YES DOPPLER: YES COLOR FLOW: YES TDS: NO PORTABLE: YES DEFINITY: NO BUBBLE STUDY: NO DIAGNOSIS: ELEVATED LEFT ATRIUM, ATRIAL FIBRILLATION, EVAL FUNCTION CARDIAC HISTORY: CATHERIZATION: SURGERY: PROSTHETIC VALVE: PACEMAKER: MEASUREMENTS (cm) DIASTOLIC (NORMALS) SYSTOLIC (NORMALS) IVSd 1.0 (0.6-1.2) LA Diam 3.6 (1.9-4.0) LVEF 60-65% LVIDd 3.6 (3.5-5.7) LVIDs 2.5 (2.0-3.5) %FS 31% LVPWd 1.1 (0.6-1.2) Ao Diam 2.5 (2.0-3.7) 2 DIMENSIONAL ASSESSMENT: RIGHT ATRIUM: NORMAL LEFT ATRIUM: SEVERE DILATED RIGHT VENTRICLE: NORMAL LEFT VENTRICLE: NORMAL TRICUSPID VALVE: MILD TRICUSPID REGURGITATION MITRAL VALVE: MILD MITRAL REGURGITATION PULMONIC VALVE: NORMAL AORTIC VALVE: NORMAL PERICARDIAL EFFUSION: NONE AORTIC ROOT: NORMAL LEFT VENTRICULAR WALL MOTION: NORMAL. DOPPLER/COLOR FLOW: DIASTOLIC DYSFUNCTION. COMMENTS: 1. SEVERELY DILATED LEFT ATRIUM. 2. NORMAL LEFT VENTRICULAR SYSTOLIC FUNCTION. LEFT VENTRICULAR EJECTION FRACTION 60-65%. NORMAL WALL MOTION. 3. DIASTOLIC DYSFUNCTION. 4. ELEVATED FILLING PRESSURE. RIGHT ATRIAL PRESSURE 10-15 mmHg. 5. MILD PULMONARY HYPERTENSION. RIGHT VENTRICULAR SYSTOLIC PRESSURE 40-45 mmHg. TECHNOLOGIST: ARABELLA GARCIA [facility]
[2024-05-01] MEDS: FUROSEMIDE 20 MG/ 2ML VIAL IV SCH (17:40)
[2024-05-02] MEDS: NA CHLORIDE 0.9% 500 ML ONE (07:15)
[2024-05-02] MEDS ORDERED: propofoL 200 MG/20 ML VIAL IV ONE (07:45)
[2024-05-02] MEDS ORDERED: LIDOCAINE 2% MPF 5 ML VIAL ONE (07:45)
--- NOTE | 2024-05-02 10:22 | P.PN ---
Subjective Date of Service: 05/02/24 Chief Complaint: edema, shortness of breath Subjective: No new changes, No C/O voiced, Tolerating diet, Ambulating, Improving Review of Systems 10-point ROS is otherwise unremarkable Physical Examination - Vital Signs Temperature: 97.6 F Blood Pressure: 143/66 Pulse: 61 Respirations: 16 Pulse Ox (%): 96 - Physical Exam General: Alert, In no apparent distress HEENT: Atraumatic, PERRLA, EOMI Neck: Supple, JVD not distended Respiratory: Clear to auscultation bilaterally, Normal air movement Cardiovascular: Regular rate/rhythm, Normal S1 S2 Gastrointestinal: Normal bowel sounds, No tenderness Musculoskeletal: No tenderness Integumentary: No rashes Neurological: Normal speech, Normal tone, Normal affect Lymphatics: No axilla or inguinal lymphadenopathy - Studies Medications List Reviewed: Yes Assessment And Plan - Current Problems (Diagnosis) (1) Atrial fibrillation Onset Date: 08/23/14 Current Visit: No Status: Chronic Plan: Patient has been in AF for long perior of time, she is on sotalol and digoxin, Echo shows moderate to severe dilated LA ANIKA DCCV is done and patient converted to sinus rhythm continue sotalol, digoxin continue Eliquis (2) Lymphedema of lower extremity Current Visit: No Status: Chronic Plan: advised patient that she will need to see lymphedema clinic, she is seeing IR as outpatient, plan for venous study. (3) Acute on chronic diastolic heart failure Current Visit: Yes Status: Acute Plan: swithc Lasix to 40 mg PO BID for 1 week on discharge then continue Lasix 40 mg daily continue Aldactone 25 mg daily
[2024-05-02] MEDS: SPIRONOLACTONE 25 MG TABLET PO SCH (11:05)
[2024-05-02 13:49] VITALS: BP 137/70
[2024-05-02 13:52] VITALS: TEMP 97.6
[2024-05-02 14:04] VITALS: O2SAT 93
--- NOTE | 2024-05-02 14:55 | TEE ---
TRANSESOPHAGEAL ECHOCARDIOGRAM REPORT CARDIOLOGY DEPARTMENT DATE OF STUDY: 05/02/2024 HEIGHT: 5'2 WEIGHT: 185 lbs DIAGNOSIS: ATRIAL FIBRILLATION COMMENTS: 1. NORMAL LEFT ATRIAL APPENDAGE. NO CLOT. 2. MILD MITRAL REGURGITATION. TECHNOLOGIST: GERI MCKEON
--- NOTE | 2024-05-02 15:22 | OP ---
Date of Procedure: 05/02/2024 Surgeon: Jacob Garcia Procedure Performed: Synchronized transesophageal echocardiogram cardioversion. Indication For Procedure: Atrial fibrillation. Complications: None. Estimated Blood Loss: None. Sedation: Done by Anesthesia team. Description Of Procedure: After risks, and benefits, and alternatives were explained to the patient, patient agreed to proceed with procedure and signed informed consent. The patient was brought back to the OR. Time-out was performed. Sedation was administered by Anesthesia Team. Next, the ANIKA pro be was inserted, images were obtained, and then ANIKA probe out. The synchronized cardioversion was do ne with 200 joules. Patient did not respond the first time. So another synchronized cardioversion w as done with 250 joules. The patient was converted back into sinus rhythm. The patient was moved ba to recovery room in stable condition. Assessment And Plan: Atrial fibrillation, status post synchronized transesophageal echocardiogram ca rdioversion. Plan is to continue sotalol 80 mg p.o. b.i.d., and continue daily, and continue Eliquis 2. 5 mg p.o. b.i.d. HYACINTH/STEFANIE Voice ID: [id number] Report ID: [id number]
--- NOTE | 2024-05-04 13:10 | P.DS ---
Admission Date: 04/30/24 Discharge Date: 05/04/24 Disposition: ROUTINE DISCHARGE Discharge Condition: FAIR Reason for Admission: edema, shortness of breath - Problems (1) Acute on chronic diastolic heart failure Status: Acute (2) Atrial fibrillation Onset Date: 08/23/14 Status: Chronic Hospital Course: ALIX HAS A FIB WITH LYMPHEDEMA THAT I SEVERE. SHE HAS AN ELECTRIC PUMP FOR LEGS THAT WORKS GREAT. SHE COMES WITH RAPID A FIB AND CHF. SHE WAS GIVEN IV LASIX. WENT THROUGH CARDIOVERSION, WAS STABLE AND SENT HOME ON LASIX AND SPIRONOLACTONE. SHE IS ALREADY ON SOTALOL. Vital Signs/Physical Exam: Temp Pulse Resp BP Pulse Ox 97.6 F 91 H 16 137/70 93 05/02/24 12:00 05/02/24 12:00 05/02/24 12:00 05/02/24 12:00 05/02/24 12:00 Laboratory Data at Discharge: WBC 5.60 thou/uL (4.3-10.9) 04/29/24 23:35 Hgb 12.9 g/dL (12.0-15.0) 04/29/24 23:35 Hct 38.5 % (36.0-45.0) 04/29/24 23:35 Plt Count 204 thou/uL (152-406) 04/29/24 23:35 PT 14.0 SECONDS (9.4-12.5) H 04/29/24 23:35 INR 1.26 04/29/24 23:35 Sodium 136 mEq/L (136-145) 05/01/24 05:12 Potassium 3.2 mEq/L (3.5-5.1) L 05/01/24 05:12 BUN 18 mg/dL (7-18) 05/01/24 05:12 Creatinine 1.02 mg/dL (0.55-1.02) 05/01/24 05:12 Glucose 238 mg/dL (74-106) H 05/01/24 05:12 Magnesium 1.7 mg/dL (1.6-2.4) 05/01/24 05:12 Total Bilirubin 0.9 mg/dL (0.2-1.0) 04/29/24 23:35 AST 25 U/L (15-37) 04/29/24 23:35 ALT 29 U/L (13-56) 04/29/24 23:35 Alkaline Phosphatase 86 U/L (45-117) 04/29/24 23:35 Home Medications: Gabapentin [Neurontin*] 300 mg PO BEDTIME 08/22/14 Ropinirole HCl [Requip] 3 mg PO TID 08/22/14 Apixaban [Eliquis *] 5 mg PO BID #60 tablet 08/24/14 Sotalol HCl [Betapace*] 80 mg PO 0600,1800 #60 tab 08/24/14 Mirtazapine [Remeron] 15 mg PO BEDTIME 05/03/15 Acetaminophen [Pain Relief] 500 mg PO PRN PRN 04/30/24 Digoxin [Lanoxin] 250 mcg PO DAILY 04/30/24 Glucosamine/Chondroiti/[id number] [Cosamin Asu Capsule] 2 tab PO DAILY 04/30/24 Furosemide 40 mg PO BID #30 tab 05/02/24 Spironolactone [Aldactone] 50 mg PO DAILY #90 tab 05/02/24 New Medications: Spironolactone [Aldactone] 50 mg PO DAILY #90 tab Furosemide 40 mg PO BID #30 tab Followup: Konrad Stevenson MD [Primary Care Provider] - 1-2 Weeks Jacob Garcia MD [ACTIVE - CAN ADMIT] - 1-2 Weeks
== END 2024-05-02 14:37 | disposition home or self-care (01) | DRG 291 ==
LOC: ER 20:36 → ERHOLD 04-30 00:58 → 2ND 04-30 02:15
PROVIDERS: ADMIT Hospitalist; ATTEND Internal Medicine
DX: I11.0 Hypertensive heart disease with heart failure (principal); I50.33 Acute on chronic diastolic (congestive) heart failure; I48.0 Paroxysmal atrial fibrillation; Z79.01 Long term (current) use of anticoagulants; Z88.2 Allergy status to sulfonamides; Z90.49 Acquired absence of other specified parts of digestive tract; Z90.710 Acquired absence of both cervix and uterus; E78.5 Hyperlipidemia, unspecified; F32.A Depression, unspecified; I89.0 Lymphedema, not elsewhere classified; G47.33 Obstructive sleep apnea (adult) (pediatric); E66.9 Obesity, unspecified; Z68.33 Body mass index [BMI] 33.0-33.9, adult
CPT/HCPCS: 01922; 36415; 71045; 80048; 80076; 81001; 83735; 83880; 84484; 85025; 85610; 92960; 93005; 93306; 93312; 93970; 94760; 96372; 96374; 99284; J1650; J1940; J2003; J2704; J7040

== ENCOUNTER 2024-05-29 23:49 | Observation (INO) | payer OTHER ==
--- OUTSIDE RECORDS SUMMARY | 2024-05-29 23:52 | XMS REPORT | Clinical Summary ---
Author Name Unknown Organization [facility] Address [address] [place] [address] Care Team Providers Care Merchandiser Seasonal Name Role Phone Konrad Stevenson MD Unavailable [phone] Christopher Dee MD Unavailable Unavailable Claritza Christianson MD Primary Care Provider [phone] Mayra Garcia MD Unavailable [phone] Angel Ambrocio MD Unavailable [phone] Allergies Active Allergy Reactions Criticality Noted [...] 0(pTis (DCIS), pN0, cM0, G3, ER: Positive, MA: Positive, HER2: Not Assessed) - Signed by Patricia Mahajan MD on 12/08/2017 Surgical History Surgery Date Site/Laterality Comments KNEE ARTHROPLASTY Right CHOLECYSTECTOMY TONSILLECTOMY HYSTERECTOMY ovaries intact COLONOSCOPY MA MASTECTOMY PARTIAL 11/23/2017 Breast/Right Procedure: NEEDLE LOC; SEGMENTAL MASTECTOMY; Surgeon: Claritza Christianson MD; Location: [place] [facility]; Service: BREAST Medical History Medical History [...] Due Date Last Done Comments Pneumococcal Vaccine: 50+ Years (1 of 1 - PCV) 993 COVID-19 Vaccine ( - 2023- season) 2023 Influenza Vaccine (#1) 2023 Insurance MEDICARE PART A AND B [employer] HMO MEDICARE PART A AND B FORMERLY [facility] [address] [place] [address] MEDICARE [facility] Advance Directives * Full Code (Latest Code Status on File) Date Activated Date Inactivated Comments 11/23/2017 1:59 PM 11/23/2017 6:04 PM Care Teams Merchandiser Seasonal Relationship Specialty Start Date End Date Konrad Stevenson MD [address] [place] [id number] [email or web address] PCP - External Follow Up A Internal Medicine 11/04/17 Christopher Dee MD [id number] [address] PCP - External Follow Up B Cardiology 11/04/17 Claritza Christianson MD [address] [place] [id number] [email or web address] PCP - General Breast Surgery 11/10/17 Mayra Garcia MD [address] [place] [phone] [email or web address] Physician Medical Oncology 11/30/17 Angel Ambrocio MD [address] [place] [id number] [email or web address] Consulting Physician Cardiology 11/15/17
[2024-05-30] MEDS ORDERED: NA CHLORIDE 0.9% 100 ML ONE (00:28)
[2024-05-30] MEDS ORDERED: VANCOMYCIN 1 GM/VIAL ONE (00:28)
[2024-05-30] MEDS ORDERED: NA CHLORIDE 0.9% 250 ML ONE (00:28)
[2024-05-30] MEDS ORDERED: PIPERACIL/TAZO 3.375 GM VIAL IV ONE (00:29)
[2024-05-30 01:05] LABS: Absolute Eosinophils 0.1 K/uL (0-0.5); Absolute Lymphocytes (CBC) 1.8 K/uL (0.7-4.9); Absolute Monocytes 0.7 K/uL (0.1-1.3); Absolute Neutrophil 3.4 K/uL (1.8-8.0); Basophils % 0.3 % (0-1.3); Eosinophils % 1.2 % (0-4.4); Hematocrit 36.9 % (36.0-45.0); Hemoglobin 12.5 g/dL (12.0-15.0); Lymphocytes % 29.9 % (15.3-44.8); MCHC 33.8 g/dL (32.0-36.0); MCV 91.7 fL (80-100); MPV 7.9 fL (7.6-11.3); Monocytes % 11.1 % (3.3-12.3); Neutrophils % 57.5 % (41.7-73.7); Platelets 201 thou/uL (152-406); RBC Red Blood Cell Count 4.03 M/uL (3.86-4.86); Red Cell Distribution Width 14.7 % (12.1-15.2)
[2024-05-30 01:24] LABS: PT Prothrombin Time 15.4 SECONDS (9.4-12.5); Protime INR 1.47
[2024-05-30 01:50] LABS: Albumin 3.1 g/dL (3.4-5.0); Albumin/Globulin Ratio 0.8 (1.1-1.8); Anion Gap 7.8 mEq/L (5.0-15.0); Bilirubin Direct 0.3 mg/dL (0-0.2); Bilirubin Indirect, Calculated 0.6 mg/dL (0.2-0.8); Bilirubin Total 0.9 mg/dL (0.2-1.0); C-Reactive Protein 14.8 mg/L (<3.00); Globulin 3.7 g/dL (2.3-3.5); Magnesium 1.9 mg/dL (1.6-2.4); Potassium 2.8 mEq/L (3.5-5.1); Protein, Total 6.8 g/dL (6.4-8.2); Troponin High Sensitivity 8.3 pg/mL (<58.9)
--- NOTE | 2024-05-30 03:46 | RAD REPORT ---
ADDENDUM #1 ADDENDUM: Technologist notes say negative DVT. Electronically signed by: Imer Jimenez MD 05/30/2024 04:01 AM [facility] RP End of Addendum EXAM: Extrem Venous W Compress Ld US Bilateral Lower Extremity Venous Duplex Doppler HISTORY: pain COMPARISON: US bilateral leg vein 04/29/2024 report without images TECHNIQUE: Grayscale, color Doppler, duplex Doppler, spectral Doppler images and analysis with compre ssion and augmentation of right and left lower extremity veins. FINDINGS: No technologist notes/worksheet available. When this becomes available then an addendum can be made. Otherwise, right and Left common femoral, greater saphenous, femoral, deep (profunda) femoral, poplit eal, posterior tibial veins appear unremarkable without evidence of clot. Bilateral peroneal and anterior tibial veins not imaged. IMPRESSION: No sonographic evidence of right or left lower extremity DVT. Electronically signed by: Imer Jimenez MD 05/30/2024 03:39 AM [facility] Due to temporary technical issues with the PACS/Power scribe reporting system, reports are being signed by the in-house radiologist without review as a courtesy to ensure prompt reporting the interpreting radiologist is fully responsible for the content of the report. Transcribed Date/Time: 05/30/2024 4:04 AM
--- NOTE | 2024-05-30 04:29 | ER ---
Nurse's Notes [facility] Name: Thor Funez Age: 83 yrs Sex: Female : 1940 Arrival Date: 05/29/2024 Time: 23:49 Bed 7 Private MD: Diagnosis: Cellulitis of left lower limb;Acute left lower extremity cellulitis, acutely worsening bilateral lymphedema, recurrent atrial fibrillation Presentation: 05/30 00:10 Chief complaint: Patient states: LEFT LEG SWELLING FOR THE PAST COUPLE OF DAYS IT HAS ha1 WORSEN. WARM TO THE TOUCH. 00:10 Coronavirus screen: Client denies travel out of the [place] in the last 14 days. Ebola ha1 Screen: No symptoms or risks identified at this time. Initial Sepsis Screen: Does the patient meet any 2 criteria? No. Patient's initial sepsis screen is negative. Does the patient have a suspected source of infection? No. Patient's initial sepsis screen is negative. Risk Assessment: Do you want to hurt yourself or someone else? Patient reports no desire to harm self or others. Onset of symptoms was May 30, 2024. 00:10 Method Of Arrival: Wheelchair ha1 00:10 Acuity: LISA 3 ha1 Triage Assessment: 00:10 General: Appears uncomfortable, Behavior is calm, cooperative. Pain: Complains of pain ha1 in left leg Pain does not radiate. Pain currently is 4 out of 10 on a pain scale. Quality of pain is described as. Neuro: Level of Consciousness is awake, alert, obeys commands, Oriented to person, place, time, situation. Cardiovascular: Capillary refill < 3 seconds Patient's skin is warm and dry. Respiratory: Airway is patent Respiratory effort is even, unlabored, Respiratory pattern is regular, symmetrical. Derm:. Musculoskeletal:. Historical: - Allergies: 00:10 Sulfa (Sulfonamide Antibiotics); ha1 - PMHx: 00:10 Atrial fibrillation; Congestive heart failure; ha1 - PSHx: 00:10 Cholecystectomy; Right knee replacement; Tonsillectomy; ha1 - Immunization history:: Adult Immunizations up to date. - Infectious Disease History:: Denies. - Social history:: Smoking status: Patient denies any tobacco usage or history of. - Family history:: not pertinent. Screenin:44 [facility] ED Fall Risk Assessment (Adult) History of falling in the last 3 months, bm8 including since admission No falls in past 3 months (0 pts) Confusion or Disorientation No (0 pts) Intoxicated or Sedated No (0 pts) Impaired Gait Yes (1 pt) Mobility Assist Device Used No (0 pt) Altered Elimination No (0 pt) Score/Fall Risk Level 0 - 2 = Low Risk Oriented to surroundings, Maintained a safe environment, Educated pt \T\ family on fall prevention, incl call for assistance when getting out of bed, Assessed \T\ reinforced patient's understanding of fall precautions, Hourly rounding (assess needs \T\ fall precautionary measures) done, Used ambulatory aids as needed (educated on \T\ assisted with), Used gait belt as appropriate. Abuse screen: Denies threats or abuse. Nutritional screening: No deficits noted. Tuberculosis screening: No symptoms or risk factors identified. Assessment: 00:44 Reassessment: Patient appears in no apparent distress at this time. Patient and/or bm8 family updated on plan of care and expected duration. Pain level reassessed. Patient is alert, oriented x 3, equal unlabored respirations, skin warm/dry/pink. General: Appears in no apparent distress. uncomfortable, Behavior is calm, cooperative, appropriate for age. Pain: Complains of pain in left leg Pain currently is 7 out of 10 on a pain scale. Quality of pain is described as pulsating. Neuro: No deficits noted. Level of Consciousness is awake, alert, obeys commands, Oriented to person, place, time, situation, Appropriate for age. Cardiovascular: Reports Denies chest pain, Heart tones S1 S2 present Capillary refill < 3 seconds in bilateral fingers Patient's skin is warm and dry. Edema is 3+ to left midcalf, left ankle, left foot, left toes, right midcalf, right ankle, right foot and right toes. Respiratory: Airway is patent Respiratory effort is even, unlabored, Respiratory pattern is regular, symmetrical, Breath sounds are diminished bilaterally. GI: No signs and/or symptoms were reported involving the gastrointestinal system. : No signs and/or symptoms were reported regarding the genitourinary system. EENT: No signs and/or symptoms were reported regarding the EENT system. Derm: No signs and/or symptoms reported regarding the dermatologic system. Musculoskeletal: No signs and/or symptoms reported regarding the musculoskeletal system. 01:55 Reassessment: Patient appears in no apparent distress at this time. Patient and/or bm8 family updated on plan of care and expected duration. Pain level reassessed. Patient is alert, oriented x 3, equal unlabored respirations, skin warm/dry/pink. Patient states feeling better. Patient states symptoms have improved. 02:55 Reassessment: Patient appears in no apparent distress at this time. Patient and/or bm8 family updated on plan of care and expected duration. Pain level reassessed. Patient is alert, oriented x 3, equal unlabored respirations, skin warm/dry/pink. Patient states feeling better. Patient states symptoms have improved. 04:02 Reassessment: Patient appears in no apparent distress at this time. Patient and/or bm8 family updated on plan of care and expected duration. Pain level reassessed. Patient is alert, oriented x 3, equal unlabored respirations, skin warm/dry/pink. Patient denies pain at this time. Patient states feeling better. Patient states symptoms have improved. Vital Signs: 00:10 BP 153 / 76; Pulse 96; Resp 20 S; Temp 98.1(O); Pulse Ox 95% on R/A; Weight 88 kg; bm8 Height 5 ft. 6 in. ; 00:44 BP 142 / 81; Pulse 89; Resp 20; Temp 98.1; Pulse Ox 99% ; Pain 7/10; bm8 01:55 BP 143 / 58; Pulse 97; Resp 19; Temp 98.1; Pulse Ox 94% ; Pain 0/10; bm8 02:55 BP 106 / 64; Pulse 63; Resp 17; Temp 98.1; Pulse Ox 100% ; Pain 6/10; bm8 04:02 BP 118 / 65; Pulse 62; Resp 16; Temp 98.1; Pulse Ox 94% ; Pain 3/10; bm8 00:10 Body Mass Index 31.31 (88.00 kg, 167.64 cm) bm8 00:44 Pain Scale: Adult bm8 01:55 Pain Scale: Adult bm8 02:55 Pain Scale: Adult bm8 04:02 Pain Scale: Adult bm8 [place] Coma Score: 00:44 Eye Response: spontaneous(4). Motor Response: obeys commands(6). Verbal Response: bm8 oriented(5). Total: 15. 00:53 Eye Response: spontaneous(4). Motor Response: obeys commands(6). Verbal Response: sp4 oriented(5). Total: 15. 01:55 Eye Response: spontaneous(4). Motor Response: obeys commands(6). Verbal Response: bm8 oriented(5). Total: 15. 02:55 Eye Response: spontaneous(4). Motor Response: obeys commands(6). Verbal Response: bm8 oriented(5). Total: 15. 04:02 Eye Response: spontaneous(4). Motor Response: obeys commands(6). Verbal Response: bm8 oriented(5). Total: 15. ED Course: 05/29 23:52 Patient arrived in ED. jj6 23:55 Jason Wolf MD is Attending Physician. sp4 05/30 00:25 Triage completed. ha1 00:25 Mario Green, RN is Primary Nurse. bm8 00:30 First set of blood cultures drawn by me. vk 00:43 Initial lab(s) drawn, by me, sent to lab. Inserted saline lock: 20 gauge in left vk antecubital area, using aseptic technique. Blood collected. Flushed with 10 mL NS. 00:44 Patient has correct armband on for positive identification. Bed in low position. Call bm8 light in reach. Side rails up X 1. Adult w/ patient. Client placed on continuous cardiac and pulse oximetry monitoring. NIBP monitoring applied. color television console monitor on. Pulse ox on. NIBP on. Door closed. Warm blanket given. Pillow given. Verbal reassurance given. Head of bed elevated. 00:44 No provider procedures requiring assistance completed. Initial lab(s) drawn, by ED bm8 staff, sent to lab. EKG done, by ED staff, reviewed by Jason Wolf MD. Patient maintains SpO2 saturation greater than 95% on room air. 00:45 Second set of blood cultures drawn by me. vk 00:51 XRAY Chest (1 view) In Process Unspecified. EDMS 01:27 Extrem Venous W Compression Ld US In Process Unspecified. EDMS 01:55 Provided Education on:. bm8 02:05 Arm band placed on right wrist. bm8 03:59 Blood Culture Adult (2) Sent. vk 04:27 Prince Ortega MD is Hospitalizing Provider. sp4 05:48 Provided Education on: need for admission. bm8 05:48 Patient admitted, IV remains in place. bm8 07:20 Primary Nurse role handed off by Mario Green, RN bd 08:21 Michael Marin, RN is Primary Nurse. bp Administered Medications: 00:41 Drug: Piperacillin-Tazobactam IVPB 3.375 grams IVPB once over 60 mins; (mix in NS 100 bm8 mL) Route: IVPB; Infused Over: 60 mins; Site: left antecubital; 02:55 Follow up: Response: No adverse reaction; IV Status: Completed infusion; IV Intake: bm8 100ml 02:04 Drug: vancoMYCIN IVPB 1 grams IVPB once over 2 hrs Route: IVPB; Infused Over: 2 hrs; bm8 Site: right antecubital; 02:56 Follow up: Response: No adverse reaction; IV Intake: 250ml bm8 05:48 Follow up: Response: No adverse reaction; IV Status: Completed infusion; IV Intake: bm8 250ml 04:59 Drug: Potassium PO Effervescent Tablet 50 mEq PO once; dissolve in 4 ounces of water or bm8 juice Route: PO; 05:48 Follow up: Response: No adverse reaction bm8 04:59 Drug: Potassium Chloride PO 40 mEq PO once Route: PO; bm8 05:48 Follow up: Response: No adverse reaction bm8 04:59 Drug: Potassium Chloride IV 20 mEq IV at calculated rate once; administer over 1-2 bm8 hours Route: IV; Rate: calculated rate; Site: left antecubital; 05:48 Follow up: Response: No adverse reaction; IV Status: Infusion continued upon admission bm8 Medication: 00:44 VIS not applicable for this client. bm8 Intake: 02:55 IV: 100ml; Total: 100ml. bm8 02:56 IV: 250ml; Total: 350ml. bm8 05:48 IV: 250ml; Total: 600ml. bm8 Outcome: 04:28 Decision to Hospitalize by Provider. sp4 05:48 Admitted to ER Hold. [facility] for further documentation. bm8 05:48 Condition: stable 05:48 Instructed on discharge instructions, follow up and referral plans. the need for admit, Demonstrated understanding of instructions, follow-up care, medications, 15:29 Patient left the ED. bp Signatures: Dispatcher [employer] EDMS Alysha Lody Brian, RN RN bp Viv Hector jj6 Trixie Merida RN RN ha1 Jason Wolf MD MD sp4 Mellisa Soto Brad, RN RN bm8 Corrections: (The following items were deleted from the chart) 05:47 00:10 BP 153 / 76; Pulse 96bpm; Resp 20bpm; Spontaneous; Pulse Ox 95% RA; Temp 98.1F bm8 Oral; 88 kg; Height 5 ft. 6 in.; BMI: 31.3; ha1
--- NOTE | 2024-05-30 04:29 | EDPHYS ---
Physician Documentation [facility] Name: Thor Funez Age: 83 yrs Sex: Female : 1940 Arrival Date: 05/29/2024 Time: 23:49 Bed 7 Private MD: ED Physician Jason Wolf HPI: 05/29 23:55 This 83 yrs old Female presents to ER via Unassigned with complaints of sp4 Swelling of Lower Extremity. 05/30 04:10 83-year-old female with history of atrial fibrillation and treated with synchronized sp4 transesophageal cardioversion 05/02/2024 , history of lymphedema also history of CHF on Lasix and spironolactone. Patient's medications include gabapentin, ropinirole, apixaban 5 mg p.o. twice daily, sotalol 80 mg p.o. twice a day mirtazapine 50 mg bedtime, digoxin 250 mcg p.o. daily, glucosamine/chondroitin, furosemide 40 mg twice daily, spironolactone 50 mg daily.. 04:26 Patient presents today with worsening swelling redness tenderness discomfort of the sp4 left lower extremity. Redness developed rapidly in the past 24 hours. Historical: - Allergies: 00:10 Sulfa (Sulfonamide Antibiotics); ha1 - PMHx: 00:10 Atrial fibrillation; Congestive heart failure; ha1 - PSHx: 00:10 Cholecystectomy; Right knee replacement; Tonsillectomy; ha1 - Immunization history:: Adult Immunizations up to date. - Infectious Disease History:: Denies. - Social history:: Smoking status: Patient denies any tobacco usage or history of. - Family history:: not pertinent. ROS: 04:10 Constitutional: Negative for fever, chills, and weight loss, positive for left lower sp4 extremity swelling tenderness and redness. 04:10 All other systems are negative, Exam: 04:10 Constitutional: This is a well developed, well nourished patient who is awake, alert, sp4 and in no acute distress. Head/Face: Normocephalic, atraumatic. Eyes: Pupils equal round and reactive to light, extra-ocular motions intact. Lids and lashes normal. Conjunctiva and sclera are not injected. Cornea within normal limits. Periorbital areas with no swelling, redness, or edema. ENT: Nares patent. No nasal discharge, no septal abnormalities noted. Tympanic membranes are normal and external auditory canals are clear. Oropharynx with no redness, swelling, or masses, exudates, or evidence of obstruction, uvula midline. Mucous membranes moist. Neck: Trachea midline, no thyromegaly or masses palpated, and no cervical lymphadenopathy. Supple, full range of motion without nuchal rigidity, or vertebral point tenderness. Chest/axilla: Normal chest wall appearance and motion. Nontender with no deformity. No lesions are appreciated. Cardiovascular: Regular rate and rhythm with a normal S1 and S2. No gallops, murmurs, or rubs. Normal PMI, no JVD. No pulse deficits. Bilateral lower extremity moderate to severe edema left more than right with left lower extremity redness tenderness swelling consistent with cellulitis Respiratory: Lungs have equal breath sounds bilaterally, clear to auscultation and percussion. No rales, rhonchi or wheezes noted. No increased work of breathing, no retractions or nasal flaring. Abdomen/GI: Soft, with normal bowel sounds. No distension or tympany. No guarding or rebound. No evidence of tenderness throughout. Back: No spinal tenderness. No costovertebral tenderness. Skin: Warm, dry with normal turgor. Normal color with no rashes, no lesions, positive for cellulitic changes left lower extremity. MS/ Extremity: Pulses equal, no cyanosis. Neurovascular intact. Full, normal range of motion. Positive for cellulitic changes left lower extremity. Bilateral lower extremity moderate to severe lymphedema Neuro: Awake and alert, GCS 15, oriented to person, place, time, and situation. Cranial nerves II-XII grossly intact. Motor strength 5/5 in all extremities. Sensory grossly intact. Psych: Awake, alert, with orientation to person, place and time. Behavior, mood, and affect are within normal limits 04:10 ECG was reviewed by the Attending Physician. EKG at 053 atrial fibrillation with PVCs, rate 89. Vital Signs: 00:10 BP 153 / 76; Pulse 96; Resp 20 S; Temp 98.1(O); Pulse Ox 95% on R/A; Weight 88 kg; bm8 Height 5 ft. 6 in. ; 00:44 BP 142 / 81; Pulse 89; Resp 20; Temp 98.1; Pulse Ox 99% ; Pain 7/10; bm8 01:55 BP 143 / 58; Pulse 97; Resp 19; Temp 98.1; Pulse Ox 94% ; Pain 0/10; bm8 02:55 BP 106 / 64; Pulse 63; Resp 17; Temp 98.1; Pulse Ox 100% ; Pain 6/10; bm8 04:02 BP 118 / 65; Pulse 62; Resp 16; Temp 98.1; Pulse Ox 94% ; Pain 3/10; bm8 00:10 Body Mass Index 31.31 (88.00 kg, 167.64 cm) bm8 00:44 Pain Scale: Adult bm8 01:55 Pain Scale: Adult bm8 02:55 Pain Scale: Adult bm8 04:02 Pain Scale: Adult bm8 Matheus Coma Score: 00:44 Eye Response: spontaneous(4). Motor Response: obeys commands(6). Verbal Response: bm8 oriented(5). Total: 15. 00:53 Eye Response: spontaneous(4). Motor Response: obeys commands(6). Verbal Response: sp4 oriented(5). Total: 15. 01:55 Eye Response: spontaneous(4). Motor Response: obeys commands(6). Verbal Response: bm8 oriented(5). Total: 15. 02:55 Eye Response: spontaneous(4). Motor Response: obeys commands(6). Verbal Response: bm8 oriented(5). Total: 15. 04:02 Eye Response: spontaneous(4). Motor Response: obeys commands(6). Verbal Response: bm8 oriented(5). Total: 15. MDM: 00:03 Medical Screening Exam initiated sp4 04:25 ED course: ADDENDUM: Technologist notes say negative DVT. Electronically signed by: brandi Wills MD 05/30/2024 04:01 AM [facility] End of Addendum EXAM: Extrem Venous W Compress Ld US Bilateral Lower Extremity Venous Duplex Doppler HISTORY: pain COMPARISON: US bilateral leg vein 04/29/2024 report without images TECHNIQUE: Grayscale, color Doppler, duplex Doppler, spectral Doppler images and analysis with compression and augmentation of right and left lower extremity veins. FINDINGS: No technologist notes/worksheet available. When this becomes available then an addendum can be made. Otherwise, right and Left common femoral, greater saphenous, femoral, deep (profunda) femoral, popliteal, posterior tibial veins appear unremarkable without evidence of clot. Bilateral peroneal and anterior tibial veins not imaged. IMPRESSION: No sonographic evidence of right or left lower extremity DVT. . ED course: EXAM: XR Chest, 1 View CLINICAL HISTORY: The patient is 83 years old and is Female; leg swelling TECHNIQUE: Frontal view of the chest. COMPARISON: No relevant prior studies available. FINDINGS: LUNGS: Calcified granuloma are noted throughout the lungs. There is no lobar consolidation. PLEURAL SPACE: Unremarkable. No pneumothorax. HEART: Unremarkable. No cardiomegaly. MEDIASTINUM: Unremarkable. Normal mediastinal contour. BONES/JOINTS: Multilevel degenerative change of the spine is present. No acute fracture. SOFT TISSUES: Surgical clips overlie the right chest. VASCULATURE: Atherosclerosis of the aorta is present. UPPER ABDOMEN: Unremarkable as visualized. IMPRESSION: No acute cardiopulmonary process. . 04:25 Differential diagnosis: closed fracture, contusion, abrasion, tendonitis. Data sp4 reviewed: vital signs, nurses notes, lab test result(s), EKG, radiologic studies, plain films, ultrasound. Consideration of Admission/Observation Patient was admitted/placed on observation. Escalation of care including admission/observation considered. Management of patient was discussed with the following: Hospitalist: Jordan LARA . ED course: Patient presents with right lower extremity swelling and left lower extremity swelling and redness. Ultrasound negative for DVT. Patient has signs of left lower extremity cellulitic changes secondary to scratch and abrasion to the left lower extremity. Patient warrants admission for further IV antibiotic management.. 05/30 00:11 Order name: Basic Metabolic Panel; Complete Time: 04:05/30 00:11 Order name: CBC with Diff; Complete Time: 04:08 4 05/30 00:11 Order name: LFT's; Complete Time: 04:08 05/30 00:11 Order name: Magnesium; Complete Time: 04:08 05/30 00:11 Order name: NT PRO-BNP; Complete Time: 04:08 4 05/30 00:11 Order name: PT-INR; Complete Time: 04:08 05/30 00:11 Order name: Troponin HS; Complete Time: 04:08 sp4 05/30 00:11 Order name: CRP; Complete Time: 04:08 sp4 05/30 00:11 Order name: Blood Culture Adult (2) sp4 05/30 04:43 Order name: Basic Metabolic Panel EDMS 05/30 04:43 Order name: Basic Metabolic Panel EDMS 05/30 04:43 Order name: CBC with Automated Diff EDMS 05/30 04:43 Order name: CBC with Automated Diff EDMS 05/30 04:43 Order name: Protime (+INR) EDMS 05/30 04:43 Order name: Protime (+INR) EDMS 05/30 04:43 Order name: PTT, Activated Partial Thromb EDMS 05/30 04:43 Order name: PTT, Activated Partial Thromb EDMS 05/30 06:13 Order name: Creatine Phosphokinase EDMS 05/30 12:35 Order name: BMP bp 05/30 13:08 Order name: Basic Metabolic Panel EDMS 05/30 00:11 Order name: XRAY Chest (1 view) sp4 05/30 00:11 Order name: Extrem Venous W Compression Ld US; Complete Time: 04:08 sp4 05/30 00:11 Order name: EKG; Complete Time: 00:11 sp4 05/30 00:11 Order name: Cardiac monitoring; Complete Time: 00: sp4 05/30 00:11 Order name: EKG - Nurse/Tech; Complete Time: 00: sp4 05/30 00:11 Order name: IV Saline Lock; Complete Time: 00: sp4 05/30 00:11 Order name: Labs collected and sent; Complete Time: 00: 4 05/30 00:11 Order name: O2 Per Protocol; Complete Time: 00: sp4 05/30 00:11 Order name: O2 Sat Monitoring; Complete Time: 00: EC:53 Rate is 89 beats/min. Rhythm is irregularly irregular, A fib. QRS [place] is Normal. QRS sp4 interval is normal. QT interval is normal. No ST changes noted. Clinical impression: No evidence of ischemia. Interpreted by me. Reviewed by me. Administered Medications: 00:41 Drug: Piperacillin-Tazobactam IVPB 3.375 grams IVPB once over 60 mins; (mix in NS 100 bm8 mL) Route: IVPB; Infused Over: 60 mins; Site: left antecubital; 02:55 Follow up: Response: No adverse reaction; IV Status: Completed infusion; IV Intake: bm8 100ml 02:04 Drug: vancoMYCIN IVPB 1 grams IVPB once over 2 hrs Route: IVPB; Infused Over: 2 hrs; bm8 Site: right antecubital; 02:56 Follow up: Response: No adverse reaction; IV Intake: 250ml bm8 05:48 Follow up: Response: No adverse reaction; IV Status: Completed infusion; IV Intake: bm8 250ml 04:59 Drug: Potassium PO Effervescent Tablet 50 mEq PO once; dissolve in 4 ounces of water or bm8 juice Route: PO; 05:48 Follow up: Response: No adverse reaction bm8 04:59 Drug: Potassium Chloride PO 40 mEq PO once Route: PO; bm8 05:48 Follow up: Response: No adverse reaction bm8 04:59 Drug: Potassium Chloride IV 20 mEq IV at calculated rate once; administer over 1-2 bm8 hours Route: IV; Rate: calculated rate; Site: left antecubital; 05:48 Follow up: Response: No adverse reaction; IV Status: Infusion continued upon admission bm8 Disposition Summary: 05/30/24 04:28 Hospitalization Ordered Notes: Hospitalization Status: Inpatient Admission sp4 Provider: Prince brandi Ortega Condition: Stable sp4 Problem: new sp4 Symptoms: have improved sp4 Bed/Room Type: Standard sp4 Location: [facility] ER HOLD(05/30/24 05:36) rv1 Room Assignment: ERHOLD-(05/30/24 05:36) rv1 Diagnosis - Cellulitis of left lower limb sp4 - Acute left lower extremity cellulitis, acutely worsening bilateral lymphedema, sp4 recurrent atrial fibrillation Forms: - Medication Reconciliation Form sp4 - SBAR form sp4 - Leadership Thank You Letter sp4 Signatures: Dispatcher [employer] EDMS Trixie Merida RN RN ha1 Dee Ash rv1 Jason Wolf MD MD sp4 Mario Green RN RN bm8 Corrections: (The following items were deleted from the chart) 00:12 00:12 Extrem Venous W Compression [id number] ordered. EDNH EDMS 05:36 04:28 Telemetry/MedSurg (Inpatient) sp4 rv1 05:36 04:28 sp4 rv1
[2024-05-30] MEDS ORDERED: HYDROMORPHONE HCL 1 MG/ML INJ IV PRN (04:38)
[2024-05-30] MEDS ORDERED: ACETAMINOPHEN 500 MG TAB PO PRN (04:38)
[2024-05-30] MEDS ORDERED: ONDANSETRON 4 MG/2 ML VIAL IV PRN (04:38)
[2024-05-30] MEDS: CEFEPIME 1 GM in NA CHLORIDE 0.9% 100 ML IV SCH (04:41)
--- NOTE | 2024-05-30 04:45 | P.HP ---
Certification for Inpatient Patient admitted to: Observation With expected LOS: <2 Midnights Practitioner: I am a practitioner with admitting privileges, knowledge of patient current condition, hospital course, and medical plan of care. Services: Services provided to patient in accordance with Admission requirements found in Title 42 Section 412.3 of the Code of Federal Regulations Patient History Date of Service: 05/30/24 Reason for admission: LLE cellulitis History of Present Illness: Patient is a 83 year old female with a PMH of lymphedema, CHF and atrial fibrillation s/p ANIKA/DCCV early April of 2024. She presents to the ER with rapidly progressing LLE swelling and tenderness. Patient states that she was pricked by a jena earlier in the day. She did not make much of it as there was no visible evidence of trauma. She denied any open wound, drainage. She also denies systemic signs of fever or chills. It was not until bedtime that she noticed that her leg was heavy, red and painful. She presented to the ER for this reason. Workup in the ER was largely unremarkable including basic labs and Doppler studies. Patient was given vancomycin and Zosyn in the ER. During my evaluation, she was hemodynamically stable. Alert and awake. She has mild inflammation of her left lower extremity. Allergies Sulfa (Sulfonamide Antibiotics) Allergy (Verified 08/22/14 20:08) Anaphylaxis Home Medications: Gabapentin [Neurontin*] 300 mg PO BEDTIME 08/22/14 Ropinirole HCl [Requip] 3 mg PO TID 08/22/14 Apixaban [Eliquis *] 5 mg PO BID #60 tablet 08/24/14 Sotalol HCl [Betapace*] 80 mg PO 0600,1800 #60 tab 08/24/14 Mirtazapine [Remeron] 15 mg PO BEDTIME 05/03/15 Acetaminophen [Pain Relief] 500 mg PO PRN PRN 04/30/24 Digoxin [Lanoxin] 250 mcg PO DAILY 04/30/24 Glucosamine/Chondroiti/[id number] [Cosamin Asu Capsule] 2 tab PO DAILY 04/30/24 Furosemide 40 mg PO BID #30 tab 05/02/24 Spironolactone [Aldactone] 50 mg PO DAILY #90 tab 05/02/24 - Past Medical/Surgical History Diabetic: No -: HTN -: Restless leg syndrome -: AFib -: hyperlipidemia -: Depression -: IBS -: IBS -: hemorrhage behind left eye -: Tonsilectomy -: umbilical hernia repair -: cholecystectomy -: vaginal hysterectomy -: lymphedema - Family History Father -: Heart disease, Hypertension Notes: Mother -: Heart disease, Hypertension, Diabetes Notes: Brother -: Hypertension, Cancer Notes: prostate ca Sister -: Diabetes, Cancer Notes: skin ca - Social History Alcohol use: No CD- Drugs: No Caffeine use: Yes Physical Examination - Physical Exam General: Alert, Acute distress HEENT: Atraumatic, Normocephalic Respiratory: Clear to auscultation bilaterally, Normal air movement Cardiovascular: Normal pulses, Regular rate/rhythm, Normal S1 S2, Other (Bilateral lymphedema) Integumentary: Erythema, Warmth Neurological: Normal speech Lymphatics: Other (Bilateral lower extremity lymphedema) - Studies Laboratory Data (last 24 hrs) 05/30/24 05/30/24 05/30/24 00:30 00:30 00:30 WBC 5.90 Hgb 12.5 Hct 36.9 Plt Count 201 PT 15.4 H INR 1.47 Sodium 136 Potassium 2.8 L BUN 8 Creatinine 0.93 Glucose 209 H Magnesium 1.9 Total Bilirubin 0.9 AST 22 ALT 31 Alkaline Phosphatase 91 Assessment and Plan - Problems (Diagnosis) (1) Left leg cellulitis Current Visit: Yes Status: Acute (2) Depression Current Visit: No Status: Acute (3) Hiatal hernia Current Visit: No Status: Acute (4) Hyperlipidemia Current Visit: No Status: Acute (5) Hypertension Current Visit: No Status: Acute (6) IBS (irritable bowel syndrome) Current Visit: No Status: Acute (7) Obesity (BMI 30.0-34.9) Current Visit: No Status: Acute (8) Atrial fibrillation Onset Date: 08/23/14 Current Visit: No Status: Chronic (9) Lymphedema of lower extremity Current Visit: No Status: Chronic - Plan Assessment Patient is a 83-year-old female with CHF, chronic lower extremity lymphedema and atrial fibrillation status post ANIKA/cardioversion early April. She presented to the ER complaining of worsening left lower extremity pain, redness and swelling. This occurred after jena prick in her garden. Her symptoms have been rapidly progressing. She does not meet criteria for sepsis but appears to be in distress. Left lower extremity cellulitis Bilateral lower extremity lymphedema Hypokalemia Chronic CHF Atrial fibrillation Plan: Will admit under observation with telemetry Continue patient on empiric antibiotics including Vanco and cefepime Check CPK and monitor for symptomatic progression. Low threshold to obtain CT lower extremity if symptoms worsen or CPK compelling Monitor for compartment syndrome Blood culture been sent by ER Potassium has been replaced in the ER Follow repeat BMP, Mag Resume rest of home medications including Lasix and spironolactone once reconciled PT/OT before discharge - Advance Directives Does patient have a Living Will: No Does patient have a Durable POA for Healthcare: No
[2024-05-30] MEDS ORDERED: POTASSIUM CL SA 10 MEQ TAB PO ONE ×2 (04:47→10:38)
[2024-05-30] MEDS ORDERED: NA CHLORIDE 0.9% 1,000 ML ONE (04:48)
[2024-05-30] MEDS ORDERED: KCL 20 MEQ/100 mL IVPB 100 ML IV ONE (04:48)
[2024-05-30] MEDS ORDERED: POTASSIUM 25 MEQ EFFERV TAB ONE (04:48)
[2024-05-30] MEDS ORDERED: VANCOMYCIN 1 GM in NA CHLORIDE 0.9% 250 ML IVPB SCH (05:00)
[2024-05-30] MEDS: VANCOMYCIN 500 MG in NA CHLORIDE 0.9% 100 ML IVPB ONE (05:00)
[2024-05-30] MEDS ORDERED: VANCOMYCIN 500 MG/VIAL ONE (05:33)
[2024-05-30] MEDS ORDERED: NA CHLORIDE 0.9% 200 ML ONE (05:34)
[2024-05-30] MEDS ORDERED: CEFEPIME 1 GM/VIAL ONE (05:34)
--- NOTE | 2024-05-30 05:36 | RAD REPORT ---
EXAM: XR Chest, 1 View CLINICAL HISTORY: The patient is 83 years old and is Female; leg swelling TECHNIQUE: Frontal view of the chest. COMPARISON: No relevant prior studies available. FINDINGS: LUNGS: Calcified granuloma are noted throughout the lungs. There is no lobar consolidation. PLEURAL SPACE: Unremarkable. No pneumothorax. HEART: Unremarkable. No cardiomegaly. MEDIASTINUM: Unremarkable. Normal mediastinal contour. BONES/JOINTS: Multilevel degenerative change of the spine is present. No acute fracture. SOFT TISSUES: Surgical clips overlie the right chest. VASCULATURE: Atherosclerosis of the aorta is present. UPPER ABDOMEN: Unremarkable as visualized. IMPRESSION: No acute cardiopulmonary process. Electronically signed by: Belkis Dave MD 05/30/2024 02:28 AM [facility] Due to temporary technical issues with the [email or web address] reporting system, reports are being horacio d by the in-house radiologist without review as a courtesy to ensure prompt reporting the interpreting radiologist is fully responsible for the content of the report. Transcribed Date/Time: 05/30/2024 5:36 AM
[2024-05-30 06:06] VITALS: BMI 31.3
[2024-05-30 06:08] VITALS: TEMP 98.1
[2024-05-30 08:24] VITALS: BP 158/94
[2024-05-30] MEDS ORDERED: POTASSIUM CL SA 10 MEQ TAB PO SCH (11:00)
--- NOTE | 2024-05-30 12:09 | EKG ---
Test Date: 2024-05-30 Test Time: 00:53:45 Head Of Loss Prevention: TAJ MEASUREMENT RESULTS: Intervals: Rate: 89 MA: QRSD: 74 QT: 358 QTc: 435 Brea: P: MA: QRS: 39 T: 93 INTERPRETIVE STATEMENTS: Atrial fibrillation with premature ventricular or aberrantly conducted complexes Septal infarct, age undetermined Abnormal ECG Compared to ECG 05/02/2024 09:36:14 Ventricular premature complex(es) now present Myocardial infarct finding now present Sinus rhythm no longer present First degree AV block no longer present Electronically Signed On 05-30-24 12:09:20 ASSET AVAILABILITY LEADER by Jacob Garcia
[2024-05-30 13:07] LABS: Anion Gap 6.2 mEq/L (5.0-15.0); Potassium 4.2 mEq/L (3.5-5.1)
--- NOTE | 2024-05-30 14:20 | P.DS ---
Admission Date: 05/30/24 Discharge Date: 05/30/24 Disposition: ROUTINE DISCHARGE Discharge Condition: FAIR Reason for Admission: LLE cellulitis Brief History of Present Illness: 83 year old female with a PMH of lymphedema, CHF and atrial fibrillation s/p ANIKA/DCCV early April of 2024 presented to the ER with rapidly progressing LLE swelling and tenderness. Patient states that she was pricked by a [place]. She denied any open wound, drainage. She noticed that her leg was heavy, red and painful. Workup in the ER was largely unremarkable including basic labs and Doppler studies. Patient was given vancomycin and Zosyn in the ER. Patient was hemodynamically stable. Patient was hospitalized for further management. Hospital Course: Discharge diagnosis Left lower extremity cellulitis Bilateral lower extremity lymphedema Suspected contact dermatitis. Chronic atrial fibrillation Patient placed on observation on the medical floor. Patient's left lower extremity swelling and redness rapidly improved on antibiotics. Possible allergic reaction. Cellulitis was ruled out. Patient with stable vitals, ambulating, and states her left lower extremity pain is markedly improved. Patient had hypokalemia which was replaced with oral potassium. She is deemed stable for discharge. Vital Signs/Physical Exam: Temp Pulse Resp BP Pulse Ox 98.1 F 79 17 158/94 H 99 05/30/24 06:00 05/30/24 08:00 05/30/24 08:00 05/30/24 08:00 05/30/24 08:00 General: Alert, In no apparent distress, Oriented x3 HEENT: Mucous membr. moist/pink, Sclerae nonicteric Neck: Supple, JVD not distended Respiratory: Clear to auscultation bilaterally, Normal air movement Cardiovascular: Normal S1 S2, Edema (Trace bilateral lower extremity edema), Irregular heart rate/rhythm Gastrointestinal: Normal bowel sounds, Soft and benign, Non-distended Musculoskeletal: No swelling Integumentary: No rashes, No cyanosis Neurological: Normal strength at 5/5 x4 extr Laboratory Data at Discharge: WBC 5.90 thou/uL (4.3-10.9) 05/30/24 00:30 Hgb 12.5 g/dL (12.0-15.0) 05/30/24 00:30 Hct 36.9 % (36.0-45.0) 05/30/24 00:30 Plt Count 201 thou/uL (152-406) 05/30/24 00:30 PT 15.4 SECONDS (9.4-12.5) H 05/30/24 00:30 INR 1.47 05/30/24 00:30 Sodium 138 mEq/L (136-145) 05/30/24 12:42 Potassium 4.2 mEq/L (3.5-5.1) D 05/30/24 12:42 BUN 8 mg/dL (7-18) 05/30/24 12:42 Creatinine 0.80 mg/dL (0.55-1.02) 05/30/24 12:42 Glucose 255 mg/dL (74-106) H 05/30/24 12:42 Magnesium 1.9 mg/dL (1.6-2.4) 05/30/24 00:30 Total Bilirubin 0.9 mg/dL (0.2-1.0) 05/30/24 00:30 AST 22 U/L (15-37) 05/30/24 00:30 ALT 31 U/L (13-56) 05/30/24 00:30 Alkaline Phosphatase 91 U/L (45-117) 05/30/24 00:30 Home Medications: Gabapentin [Neurontin*] 300 mg PO BEDTIME 08/22/14 Ropinirole HCl [Requip] 3 mg PO TID 08/22/14 Apixaban [Eliquis *] 5 mg PO BID #60 tablet 08/24/14 Sotalol HCl [Betapace*] 80 mg PO 0600,1800 #60 tab 08/24/14 Mirtazapine [Remeron] 15 mg PO BEDTIME 05/03/15 Acetaminophen [Pain Relief] 500 mg PO PRN PRN 04/30/24 Digoxin [Lanoxin] 250 mcg PO DAILY 04/30/24 Glucosamine/Chondroiti/[id number] [Cosamin Asu Capsule] 2 tab PO DAILY 04/30/24 Furosemide 40 mg PO BID #30 tab 05/02/24 Spironolactone [Aldactone] 50 mg PO DAILY #90 tab 05/02/24 Amox/Clavulanate [Augmentin 875-125 Tab] 1 each PO BID #14 tab 05/30/24 New Medications: Amox/Clavulanate [Augmentin 875-125 Tab] 1 each PO BID #14 tab Diet: AHA Activity: Fall precautions Followup: Konrad Stevenson MD [Primary Care Provider] - 1 Week Time spent managing pt's care (in minutes): 28
[2024-05-30 15:41] VITALS: O2SAT 94
[2024-05-30] MEDS ORDERED: VANCOMYCIN 1.5 GM in NA CHLORIDE 0.9% 500 ML IVPB SCH (20:00)
[2024-05-31] MEDS ORDERED: VANCOMYCIN 1.5 GM in NA CHLORIDE 0.9% 500 ML IVPB SCH (05:00)
== END 2024-05-30 15:08 | disposition home health service (06) ==
LOC: ER 23:49 → INTOOBSV 05-30 04:38 → ERHOLD 05-30 04:38
PROVIDERS: ADMIT Internal Medicine; ATTEND Internal Medicine
DX: L03.116 Cellulitis of left lower limb (principal); F32.A Depression, unspecified; I10 Essential (primary) hypertension; K44.9 Diaphragmatic hernia without obstruction or gangrene; K58.9 Irritable bowel syndrome, unspecified; E66.9 Obesity, unspecified; I48.11 Longstanding persistent atrial fibrillation; I89.0 Lymphedema, not elsewhere classified; E87.6 Hypokalemia; I50.9 Heart failure, unspecified; Z68.30 Body mass index [BMI] 30.0-30.9, adult
CPT/HCPCS: 93005; 87040 ×2; 85025; 80048 ×2; 36415; 83735; 82550; 85610; 80076; 84484; 83880; 86140; 71045; 93970; 97116; 97161; 99285; J3480; J2543; J7050; J7030; J0692; G0378 ×2; J7040

== ENCOUNTER 2024-08-01 07:00 | Day surgery (SDC) | payer OTHER ==
[2024-07-31 14:30] LABS: Absolute Eosinophils 0.1 K/uL (0-0.5); Absolute Lymphocytes (CBC) 1.7 K/uL (0.7-4.9); Absolute Monocytes 0.6 K/uL (0.1-1.3); Absolute Neutrophil 4.5 K/uL (1.8-8.0); Basophils % 0.2 % (0-1.3); Eosinophils % 0.9 % (0-4.4); Hematocrit 40.4 % (36.0-45.0); Hemoglobin 13.9 g/dL (12.0-15.0); Lymphocytes % 24.6 % (15.3-44.8); MCH 31.3 pg (27.0-35.0); MCHC 34.4 g/dL (32.0-36.0); MCV 90.8 fL (80-100); MPV 8.5 fL (7.6-11.3); Monocytes % 8.6 % (3.3-12.3); Neutrophils % 65.7 % (41.7-73.7); Nucleated Red Blood Cells % 0.1 % (0-0); Platelets 215 thou/uL (152-406); RBC Red Blood Cell Count 4.46 M/uL (3.86-4.86); Red Cell Distribution Width 14.9 % (12.1-15.2)
[2024-07-31 14:38] LABS: PT Prothrombin Time 17.8 SECONDS (10-13.0); PTT, Activated Partial Thromb 32.4 SECONDS (27.2-37.4); Protime INR 1.6
[2024-07-31 14:44] LABS: Anion Gap 7.6 mEq/L (5.0-15.0); Potassium 3.6 mEq/L (3.5-5.1)
[2024-08-01] MEDS ORDERED: NA CHLORIDE 0.9% 500 ML ONE (07:20)
[2024-08-01 07:31] VITALS: TEMP 97.9
[2024-08-01] MEDS ORDERED: propofoL 200 MG/20 ML VIAL IV ONE (07:59)
[2024-08-01] MEDS ORDERED: LIDOCAINE 1% MPF 5 ML VIAL ONE (07:59)
[2024-08-01 09:00] VITALS: BP 117/49; O2SAT 97
--- NOTE | 2024-08-01 10:56 | EKG ---
Test Date: 2024-07-31 Test Time: 13:55:53 Rivet Hammer Machine Operator: PERRY MEASUREMENT RESULTS: Intervals: Rate: 95 IN: QRSD: 90 QT: 342 QTc: 429 [place]: P: IN: QRS: 43 T: 3 INTERPRETIVE STATEMENTS: Atrial fibrillation Nonspecific ST and T wave abnormality, probably digitalis effect Abnormal ECG Compared to ECG 05/30/2024 00:53:45 ST (T wave) deviation now present Ventricular premature complex(es) no longer present Myocardial infarct finding no longer present Electronically Signed On 08-01-24 10:55:00 CDT by Jacob Garcia
--- NOTE | 2024-08-01 11:20 | TEE ---
TRANSESOPHAGEAL ECHOCARDIOGRAM REPORT CARDIOLOGY DEPARTMENT DATE OF STUDY: 08/01/2024 HEIGHT: 5'2" WEIGHT: 185 lbs DIAGNOSIS: ATRIAL FIBRILLATION COMMISSARY HELPER COMMENTS: ANIKA CARDIAC HISTORY: CATHERIZATION: SURGERY: PROSTHETIC VALVE: PACEMAKER: 2 DIMENSIONAL ASSESSMENT: RIGHT ATRIUM: LEFT ATRIUM: RIGHT VENTRICLE: LEFT VENTRICLE: TRICUSPID VALVE: MITRAL VALVE: PULMONIC VALVE: AORTIC VALVE: PERICARDIAL EFFUSION: AORTIC ROOT: EJECTION FRACTION: LEFT VENTRICULAR WALL MOTION: DOPPLER/COLOR FLOW: COMMENTS: 1. NORMAL LEFT ATRIAL APPENDAGE, NO THROMBUS SEEN. STATUS POST TRANSESOPHAGEAL ECHOCARDIOGRAM DIRECT CURRENT CARDIOVERSION. TECHNOLOGIST: GERI MCKEON
--- NOTE | 2024-08-01 12:23 | OP ---
Date of Procedure: 08/01/2024 Surgeon: Jacob Garcia Procedure Performed: Synchronized ANIKA cardioversion. Indication For Procedure: Atrial fibrillation. Complications: None. Estimated Blood Loss: None. Sedation: Done by Anesthesia team. Description Of Procedure: After risks, benefits, and alternatives were explained to the patient, the patient agreed to proceed with procedure and signed informed consent. The patient was brought back to the OR. Time-out was performed. Sedation was administered by Anesthesia Team. Next, the ANIKA pro be inserted, images were obtained, and then the ANIKA probe out. Synchronized cardioversion was done w ith 250 joules. The patient converted back into sinus rhythm. The patient was moved back to [facility] in stable condition. Assessment: Atrial fibrillation, status post successful ANIKA cardioversion. Plan: 1. To continue amiodarone 200 mg p.o. b.i.d. 2. Continue Eliquis 5 mg p.o. b.i.d. QUENTIN Voice ID: [id number] Report ID: [id number]
--- NOTE | 2024-08-02 12:02 | EKG ---
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
== END 2024-08-01 08:55 | disposition home or self-care (01) ==
LOC: PRE 07:00 → CCL 08:55
PROVIDERS: ATTEND Internal Medicine Interventional Cardiology
DX: I48.0 Paroxysmal atrial fibrillation (principal); I11.0 Hypertensive heart disease with heart failure; I50.32 Chronic diastolic (congestive) heart failure; Z91.89 Other specified personal risk factors, not elsewhere classified; Z79.01 Long term (current) use of anticoagulants; Z79.899 Other long term (current) drug therapy; Z88.2 Allergy status to sulfonamides
CPT/HCPCS: 93005; 93312; 85025; 80048; 36415; 85610; 85730; 92960; J2704; J2003; J7040; 01922